=== PATIENT | female | born 1955 | race Caucasian/White ===

== ENCOUNTER → 2017-02-26 | Outpatient (CLI) | payer MEDICARE, OTHER | LOC: OD 16:20 | DX: Z12.4 Encounter for screening for malignant neoplasm of cervix (principal) | CPT/HCPCS: 88142 ==

== ENCOUNTER → 2017-04-10 | Outpatient (CLI) | payer MEDICARE, OTHER ==
--- NOTE | 2017-04-10 14:46 | WOMENS IMAGING REPORT ---
EXAM DESCRIPTION: BILAT SCREENING MAMMO W/CAD COMPLETED DATE/TIME: 04/10/2017 2:38 pm REASON FOR STUDY: ROUTINE SCREENING; Z12.31 Z12.31 ENCNTR SCREEN MAMMOGRAM FOR MALIGNANT NEOPLASM O F REBEKAH COMPARISON: None. TECHNIQUE: Standard craniocaudal and mediolateral oblique views of each breast recorded using digita l acquisition. LIMITATIONS: None. FINDINGS: No masses, calcifications or architectural distortion. No areas of suspicion. Read with the assistance of CAD. .[facility] - R2 Cenova Version 1.3 .[facility] - R2 Cenova Version 1.3 .[facility] - R2 Cenova Version 2.4 .[facility] [place] Cenova Version 2.4 .[facility] - R2 Crook Operator Version 9.2 IMPRESSION: NORMAL MAMMOGRAM. BIRADS 1. BREAST DENSITY: c. The breasts are heterogeneously dense, which may obscure small masses. BIRAD: 1 NEGATIVE RECOMMENDATION: ROUTINE SCREENING COMMENT: The patient has been notified of the results by letter per SA requirements. Additional no tification policies are in place for contacting patient with suspicious or incomplete findings. Quality ID #[id number]: The [employer] recommends an annual screening mammogram for women aged 40 years or over. This facility utilizes a reminder system to ensure that all patients receive reminder letters, and/or direct phone calls for appointments. This includes reminders for routine scr eening mammograms, diagnostic mammograms, or other Breast Imaging Interventions when appropriate. Th is patient will be placed in the appropriate reminder system. The [employer] (ACR) has developed recommendations for screening MRI of the breast s in certain patient populations, to be used in conjunction with mammography. Breast MRI surveillanc e may be appropriate for women with more than 20% lifetime risk of developing breast cancer as deter mined by genetic testing, significant family history of the disease, or history of mantle radiation f or Hodgkins Disease. ACR Practice Guidelines 2008. TECHNICAL DOCUMENTATION: FINDING NUMBER: (1) ASSESSMENT: (1) JOB ID: [id number] [employer]- All Rights Reserved
== END ==
LOC: WI 14:00
PROVIDERS: ATTEND Internal Medicine Geriatric Medicine
DX: Z12.31 Encounter for screening mammogram for malignant neoplasm of breast (principal)
CPT/HCPCS: 77067; G0202

== ENCOUNTER 2017-07-24 08:49 | Emergency (ER) | payer MEDICARE, OTHER ==
[2017-07-24 09:01] VITALS: BP 127/69
--- NOTE | 2017-07-24 09:28 | ER Document Report ---
HPI - HPI Pain Level: 4 Notes: Patient is a 61-year-old female with a history of MS who presents to the ED complaining of a dry nonproductive cough, feverish on and off 2 weeks. Patient states that she was evaluated at the urgent care twice without any chest x-ray. She was placed on amoxicillin given cough medication. Patient states that she did take an MS injection recently that was given in a series and has a side effect of URI. On occasion she will feel SOB during coughing fit. Patient denies any long distance travel, smoking, hormone replacement, surgery, or trauma. She still eating and drinking without any difficulties. She has not noticed any buildup of edema. She denies any drug allergies. Denies any headache, neck pain, sore throat, chest pain, palpitations, syncope, wheeze, dyspnea, abdominal pain, nausea/vomiting/diarrhea, urinary retention, dysuria, hematuria, or rash. Pt denies h/o CVA, TIA, DVT, PE, DM, or CA. - ROS Notes: REVIEW OF SYSTEMS: CONSTITUTIONAL : see hpi. Denies recent illness. EENT: Denies eye, ear, throat, or mouth pain or symptoms. Denies nasal or sinus congestion or discharge. Denies throat, tongue, or mouth swelling or difficulty swallowing. CARDIOVASCULAR: Denies chest pain. Denies palpitations or racing or irregular heart beat. Denies ankle edema. RESPIRATORY: see hpi GASTROINTESTINAL: Denies abdominal pain or distention. Denies nausea, vomiting , or diarrhea. Denies blood in vomitus, stools, or per rectum. Denies black, tarry stools. Denies constipation. GENITOURINARY: Denies difficulty urinating, painful urination, burning, frequency, blood in urine, or discharge. MUSCULOSKELETAL: Denies back or neck pain or stiffness. Denies joint pain or swelling. SKIN: Denies rash, lesions or sores. NEUROLOGICAL: see hpi. Denies confusion or altered mental status. Denies passing out or loss of consciousness. Denies dizziness or lightheadedness. Denies headache. Denies problems with gait or speech. Denies sensory loss, numbness, or tingling. ALL OTHER SYSTEMS REVIEWED AND NEGATIVE. Dictation was performed using [employer] voice recognition software - CARDIOVASCULAR Cardiovascular: REPORTS: Chest pain - from coughing - REPRODUCTIVE Reproductive: DENIES: : - DERM Skin Color: Normal Past Medical History - Social History Smoking Status: Unknown if Ever Smoked Family History: Reviewed & Not Pertinent Patient has suicidal ideation: No Patient has homicidal ideation: No Renal/ Medical History: Denies: Hx Peritoneal Dialysis Past Surgical History: Reports: Hx Tubal Ligation - Immunizations Hx Diphtheria, Pertussis, Tetanus Vaccination: Yes Vertical Provider Document - CONSTITUTIONAL Agree With Documented VS: Yes Notes: PHYSICAL EXAMINATION: GENERAL: Well-appearing, well-nourished and in no acute distress. HEAD: Atraumatic, normocephalic. EYES: Pupils equal round and reactive to light, extraocular movements intact, sclera anicteric, conjunctiva are normal. ENT: EAC clear b/l. TM's intact b/l without erythema, fluid, or perforation. Nares patent and without discharge. oropharynx clear without exudates. No tonsilar hypertrophy or erythema. Moist mucous membranes. No sinus tenderness. NECK: Normal range of motion, supple without lymphadenopathy. No rigidity/ meningismus. LUNGS: Breath sounds clear to auscultation bilaterally and equal. + min. wheeze. HEART: Regular rate and rhythm without murmurs, rubs, gallops. Musculoskeletal: FROM to passive/active. Strength 5+/5. Navneet neg. Extremities: No cyanosis, clubbing, or edema b/l. Peripheral pulses 2+. Capillary refill less than 3 seconds. PSYCH: Normal mood, normal affect. SKIN: Warm, Dry, normal turgor, no rashes or lesions noted. - INFECTION CONTROL TRAVEL OUTSIDE OF THE [place] IN LAST 30 DAYS: No - RESPIRATORY O2 Sat by Pulse Oximetry: 96 Course - Re-evaluation Re-evalutation: 07/24/17 14:13 Patient is an afebrile, well-hydrated, 61-year-old female with MS who presents to the ED with acute bronchitis/cough. Vitals are stable. PE otherwise unremarkable. CBC, BMP stable. CXR negative. A DuoNeb was provided today which did help with some of her symptoms. Patient then developed nausea and Zofran 4 mg p.o. was given. D-dimer was ordered due to the tachycardia and lack of ambulation. The d-dimer came back mildly high so we ordered a CTA which was unremarkable for any acute emergent condition. There is an incidental finding of a right greater than left thyroid enlargement. Patient is tolerating p.o. intake. Low suspicion/risk for any ACS, PE, pneumothorax, pericarditis, dissection, or other systemic emergent condition at this time. We will stop her amoxicillin and I will switch her to Zithromax. Conservative measures for symptoms otherwise. Recheck with your PCM in 2-3 days. Return to the ED with any worsening/concerning symptoms otherwise as reviewed in discharge. Patient is in agreement. - Vital Signs Vital signs: Temp Pulse Resp BP Pulse Ox 98.7 F 107 H 20 127/69 H 96 07/24/17 08:58 07/24/17 08:58 07/24/17 09:16 07/24/17 08:58 07/24/17 08:58 - Laboratory Result Diagrams: 07/24/17 10:55 07/24/17 10:55 Discharge - Discharge Clinical Impression: Acute bronchitis Qualifiers: Bronchitis organism: unspecified organism Qualified Code(s): J20.9 - Acute bronchitis, unspecified Condition: Stable Disposition: HOME, SELF-CARE Instructions: Bronchitis ([facility]) Additional Instructions: Maintain adequate fluid intake Take meds as directed tylenol/ibuprofen as needed over the counter cold medication as needed for symptoms Humidified air may help F/u: with your PCM in 2-3 days for a recheck Return to the ED with any fever, worsening pain, chest pain, palpitations, syncope, worsening SAWYER, neck pain/stiffness, shortness of breath, wheezing, drooling, trouble swallowing/breathing, abdominal pain, n/v/d, rash, or worsening/concerning symptoms otherwise. Prescriptions: Albuterol Sulfate [Proair HFA Inhalation Aerosol 8.5 gm MDI] 2 puff IH Q4H PRN # 1 mdi PRN Reason: Azithromycin [Zithromax 250 mg Tablet] 250 mg PO ASDIR PRN #6 tablet PRN Reason: Forms: Elevated Blood Pressure Referrals: [facility] [Provider Group] - Follow up as needed [facility] [Provider Group] - Follow up as needed
--- NOTE | 2017-07-24 09:52 | RADIOLOGY REPORT (SQ) ---
EXAM DESCRIPTION: CHEST PA/LAT COMPLETED DATE/TIME: 07/24/2017 9:40 am REASON FOR STUDY: cough COMPARISON: Chest films 03/13/2010, 12/02/2007 EXAM PARAMETERS: NUMBER OF VIEWS: two views TECHNIQUE: Digital Frontal and Lateral radiographic views of the chest acquired. RADIATION DOSE: NA LIMITATIONS: none FINDINGS: LUNGS AND PLEURA: No opacities, masses or pneumothorax. No pleural effusion. MEDIASTINUM AND HILAR STRUCTURES: No masses or contour abnormalities. HEART AND VASCULAR STRUCTURES: Heart normal size. No evidence for failure. BONES: Osteoporotic. Convex rightward thoracic and convex leftward lumbar curvature. No gross acute bony changes. HARDWARE: None in the chest. OTHER: No other significant finding. IMPRESSION: NO SIGNIFICANT RADIOGRAPHIC FINDING IN THE CHEST. TECHNICAL DOCUMENTATION: JOB ID: [id number] [employer]- All Rights Reserved
[2017-07-24] MEDS ORDERED: IPRATROPIUM/ALBUTEROL 0.5-2.5 MG/3 ML AMPUL NEB ONE (09:57)
[2017-07-24] MEDS ORDERED: ONDANSETRON 4 MG TAB.RAPDIS PO ONE (11:25)
[2017-07-24 12:57] LABS: ABSOLUTE EOSINOPHILS # (AUTO) 0.2 10^3/uL (0.0-0.6); ABSOLUTE LYMPHOCYTES (AUTO) 0.4 10^3/uL (0.5-4.7); ABSOLUTE MONOCYTES (AUTO) 0.5 10^3/uL (0.1-1.4); ABSOLUTE NEUT (AUTO) 4.6 10^3/uL (1.7-8.2); BASOPHILS % (AUTO) 0.4 % (0-2); EOSINOPHILS % (AUTO) 3.1 % (0-6); HEMATOCRIT 33.5 % (36.0-47.0); HEMOGLOBIN 11.7 g/dL (12.0-15.5); HGB HCT DIFFERENCE 1.6; LYMPHOCYTES % (AUTO) 6.6 % (13-45); MEAN CORPUSCULAR HEMOGLOBIN 31.6 pg (27.0-33.4); MEAN CORPUSCULAR VOLUME 90 fl (80-97); MONOCYTES % (AUTO) 8.6 % (3-13); RED BLOOD COUNT 3.71 10^6/uL (3.72-5.28); SEGMENTED NEUTROPHILS % (AUTO) 81.3 % (42-78); WHITE BLOOD COUNT 5.6 10^3/uL (4.0-10.5)
[2017-07-24 12:58] LABS: ANION GAP 13 (5-19); BLOOD UREA NITROGEN 16 mg/dL (7-20); CALCIUM 9.4 mg/dL (8.4-10.2); CARBON DIOXIDE 24 mmol/L (22-30); CHLORIDE 104 mmol/L (98-107); CREATININE RESULT 0.76 mg/dL (0.52-1.25); GLUCOSE 120 mg/dL (75-110); POTASSIUM 3.4 mmol/L (3.6-5.0); SODIUM 141.3 mmol/L (137-145)
--- NOTE | 2017-07-24 13:42 | RADIOLOGY REPORT (SQ) ---
EXAM DESCRIPTION: CTA CHEST COMPLETED DATE/TIME: 07/24/2017 1:15 pm REASON FOR STUDY: elevated d-dimer, cough, sob COMPARISON: None. TECHNIQUE: CT scan of the chest performed using helical scanning technique with dynamic intravenous contrast injection. Images reviewed with lung, soft tissue and bone windows. Reconstructed coronal and sagittal MPR images reviewed. Additional 3 dimensional post-processing performed to develop Maximal Intensity Projection images (MT P). All images stored on PACS. All CT scanners at this facility use dose modulation, iterative reconstruction, and/or weight based d osing when appropriate to reduce radiation dose to as low as reasonably achievable (ALARA). [facility]: Dose Right [facility]: CareDose [facility]: Dose Right [facility]: Teradose 4D [facility]: FAB BAG CONTRAST TYPE AND DOSE: contrast/concentration: Isovue 370.00 mg/ml; Total Contrast Delivered: 63.0 ml; Total Saline Delivered: 80.1 ml Contrast bolus optimized for the pulmonary arteries. Not diagnostic for the aorta. RENAL FUNCTION: Creatinine 0.8 BUN 16 RADIATION DOSE: Up-to-date CT equipment and radiation dose reduction techniques were employed. CTDIv ol: 9.9 - 14.4 mGy. DLP: 529 mGy-cm. . LIMITATIONS: None. FINDINGS: LUNGS AND PLEURA: No masses, infiltrates, pneumothorax. No pleural effusions, calcificati ons. AORTA AND GREAT VESSELS: No aneurysm. Contrast bolus not optimized for the aorta. HEART: No pericardial effusion. Mild coronary artery calcifications. PULMONARY ARTERIES: No emboli visualized in the main pulmonary arteries or the segmental branches. HILAR AND MEDIASTINAL STRUCTURES: No identified masses or abnormal nodes. HARDWARE: None in the chest. UPPER ABDOMEN: No significant findings. Limited exam. THYROID AND OTHER SOFT TISSUES: The right lobe of the thyroid is enlarged and heterogeneous. BONES: No acute or significant finding. 3D MIPS: Confirm above findings. OTHER: No other significant finding. IMPRESSION: 1. There is no evidence of pulmonary emboli. 2. There is heterogeneous enlargement of the right lobe of the thyroid gland. COMMENT: Quality ID # [id number]: Final reports with documentation of one or more dose reduction techniques (e.g., Automated exposure control, adjustment of the mA and/or kV according to patient size, use of iterative reconstruction technique) TECHNICAL DOCUMENTATION: JOB ID: [id number]- All Rights Reserved
== END 2017-07-24 14:25 | disposition home or self-care (01) ==
LOC: ER 08:49
DX: J20.9 Acute bronchitis, unspecified (principal); R05 Cough; R06.02 Shortness of breath; R11.0 Nausea; R00.0 Tachycardia, unspecified; E04.9 Nontoxic goiter, unspecified
CPT/HCPCS: 94640; 99284; 36415; 85025; 80048; 85379; 71020; 71275; A9270 ×2; J7620; S0119

== ENCOUNTER → 2017-07-28 | Outpatient (CLI) | payer MEDICARE, OTHER ==
[2017-07-28 16:57] LABS: FREE T3 3.41 pg/mL (2.77-5.27)
[2017-07-28 17:11] LABS: THYROID STIMULATING HORMONE 0.51 uIU/mL (0.47-4.68)
== END ==
LOC: OD 15:28
PROVIDERS: ATTEND Internal Medicine Geriatric Medicine
DX: E04.9 Nontoxic goiter, unspecified (principal)
CPT/HCPCS: 36415; 84439; 84443; 84481

== ENCOUNTER 2017-07-29 14:59 | Inpatient (IN) | payer MEDICARE, OTHER ==
[2017-07-29] MEDS ORDERED: ONDANSETRON HCL INJ/PF 4 MG/2 ML SDV IV ONE (16:22)
[2017-07-29] MEDS ORDERED: NORMAL SALINE 1000 ML 1,000 ML IV PRN ×2 (16:22→18:59)
--- NOTE | 2017-07-29 16:25 | ER Document Report ---
ED General - General Chief Complaint: Shortness Of Breath Stated Complaint: DIFFICULTY BREATHING Time Seen by Provider: 07/29/17 16:21 Mode of Arrival: Ambulatory Information source: Patient Notes: This is a 61-year-old female with a history of MS who presents to the emergency room with generalized weakness and shortness of breath for the past 2 weeks. Patient did have a trial dose of Lemtrada at [facility] in June. Patient states she initially did well after that but started feeling weak and having some shortness of breath 2 weeks ago. Patient denies any abdominal pain. She does state she has had some low-grade fevers and chills. Patient appeared very weak on my entry into the room and had a syncopal episode. TRAVEL OUTSIDE OF THE [place] IN LAST 30 DAYS: No - HPI Onset: Last week Onset/Duration: Gradual Quality of pain: No pain Severity: None Pain Level: Denies Associated symptoms: Fever, Shortness of breath, Weakness Exacerbated by: Denies Relieved by: Denies Similar symptoms previously: Yes Recently seen / treated by doctor: Yes - Related Data Allergies/Adverse Reactions: No Known Allergies Allergy (Verified 07/29/17 15:10) Past Medical History - General Information source: Patient - Social History Smoking Status: Never Smoker Cigarette use (# per day): No Chew tobacco use (# tins/day): No Frequency of alcohol use: None Drug Abuse: None Lives with: Family Family History: Reviewed & Not Pertinent Patient has suicidal ideation: No Patient has homicidal ideation: No - Past Medical History Cardiac Medical History: Reports: None Pulmonary Medical History: Reports: None EENT Medical History: Reports: None Neurological Medical History: Reports: Other - MS Endocrine Medical History: Reports: None Renal/ Medical History: Reports: None. Denies: Hx Peritoneal Dialysis Malignancy Medical History: Reports: None GI Medical History: Reports: None Musculoskeltal Medical History: Reports None Skin Medical History: Reports None Psychiatric Medical History: Reports: None Traumatic Medical History: Reports: None Infectious Medical History: Reports: None Past Surgical History: Reports: Hx Tubal Ligation - Immunizations Hx Diphtheria, Pertussis, Tetanus Vaccination: Yes Review of Systems - Review of Systems Constitutional: Chills, Fever, Weakness EENT: No symptoms reported Cardiovascular: No symptoms reported Respiratory: See HPI Gastrointestinal: No symptoms reported Genitourinary: No symptoms reported Female Genitourinary: No symptoms reported Musculoskeletal: No symptoms reported Skin: No symptoms reported Hematologic/Lymphatic: No symptoms reported Neurological/Psychological: Weakness Physical Exam - Vital signs Vitals: Temp Pulse Resp BP Pulse Ox 100.4 F 106 H 32 H 131/57 H 99 07/29/17 15:10 07/29/17 15:10 07/29/17 15:10 07/29/17 15:10 07/29/17 15:10 Notes: Physical exam: GENERAL: 61-year-old female, appears weak, answering questions appropriately, diaphoretic. She did syncopized on me in the ER. HEAD: Atraumatic, normocephalic. EYES: Pupils equal round and reactive to light, extraocular movements intact, sclera anicteric, conjunctiva are normal. ENT: TMs normal, nares patent, oropharynx clear without exudates. Moist mucous membranes. NECK: Normal range of motion, supple without obvious mass or JVD. LUNGS: Breath sounds clear to auscultation bilaterally and equal. No wheezes rales or rhonchi. HEART: Regular rate and rhythm without murmurs, rubs or gallops. ABDOMEN: Soft, normoactive bowel sounds. No tenderness to palpation. No guarding, no rebound. No masses appreciated. Rectal: Brown stool, sent for study EXTREMITIES: Normal range of motion, no pitting or edema. No clubbing or cyanosis. NEUROLOGICAL: Cranial nerves II through XII grossly intact. Normal speech, moving all extremities. PSYCH: Normal mood, normal affect. SKIN: Warm, Dry, normal turgor, no rashes or lesions noted. Course - Vital Signs Vital signs: Temp Pulse Resp BP Pulse Ox 98 F 86 16 147/75 H 100 07/29/17 22:17 07/29/17 22:17 07/29/17 22:17 07/29/17 22:17 07/29/17 22:17 - Laboratory Result Diagrams: 07/29/17 16:39 07/29/17 16:39 Laboratory results interpreted by me: 07/29/17 07/29/17 07/29/17 16:39 16:39 16:39 RBC 3.48 L Hgb 10.8 L Hct 30.8 L Seg Neutrophils % 83.0 H Lymphocytes % 7.7 L Absolute Lymphocytes 0.3 L Potassium 3.4 L Carbon Dioxide 21 L Lactic Acid 2.8 H Creatine Kinase 27 L Total Protein 6.1 L Albumin 3.3 L Urine Ketones Urine Blood Ur Leukocyte Esterase 07/29/17 19:42 RBC Hgb Hct Seg Neutrophils % Lymphocytes % Absolute Lymphocytes Potassium Carbon Dioxide Lactic Acid Creatine Kinase Total Protein Albumin Urine Ketones TRACE H Urine Blood SMALL H Ur Leukocyte Esterase LARGE H - Diagnostic Test Radiology reviewed: Image reviewed, Reports reviewed - CTA shows no evidence of pulmonary emboli, there is a left basilar infiltrate consistent with pneumonia - EKG Interpretation by Ut Rate: Normal Rhythm: NSR - EKG shows normal sinus rhythm with a ventricular rate of 85, no acute ST-T wave changes Critical Care Note - Critical Care Note Total time excluding time spent on procedures (mins): 60 Discharge - Discharge Clinical Impression: Syncope, Pneumonia, UTI Condition: Serious Disposition: ADMITTED INPATIENT Admitting Provider: Lloyd Unit Admitted: [facility]
--- NOTE | 2017-07-29 16:44 | EKG REPORT ---
SEVERITY:- NORMAL ECG - SINUS RHYTHM : Confirmed by: Twila Santana MD 29-Jul-2017 16:43:46
[2017-07-29 16:52] LABS: ABSOLUTE LYMPHOCYTES (AUTO) 0.3 10^3/uL (0.5-4.7); ABSOLUTE MONOCYTES (AUTO) 0.3 10^3/uL (0.1-1.4); ABSOLUTE NEUT (AUTO) 3.7 10^3/uL (1.7-8.2); BASOPHILS % (AUTO) 0.8 % (0-2); EOSINOPHILS % (AUTO) 0.7 % (0-6); HEMATOCRIT 30.8 % (36.0-47.0); HEMOGLOBIN 10.8 g/dL (12.0-15.5); HGB HCT DIFFERENCE 1.6; LYMPHOCYTES % (AUTO) 7.7 % (13-45); MEAN CORPUSCULAR HEMOGLOBIN 30.9 pg (27.0-33.4); MEAN CORPUSCULAR HGB CONC 34.9 g/dL (32.0-36.0); MEAN CORPUSCULAR VOLUME 88 fl (80-97); MONOCYTES % (AUTO) 7.8 % (3-13); RED BLOOD COUNT 3.48 10^6/uL (3.72-5.28); RED CELL DISTRIBUTION WIDTH 13.8 % (11.5-14.0); WHITE BLOOD COUNT 4.4 10^3/uL (4.0-10.5)
[2017-07-29 17:17] LABS: ALANINE AMINOTRANSFERASE 33 U/L (9-52); ALBUMIN 3.3 g/dL (3.5-5.0); ALKALINE PHOSPHATASE 46 U/L (38-126); ANION GAP 13 (5-19); ASPARTATE AMINO TRANSFERASE 29 U/L (14-36); BILIRUBIN,DIRECT 0.4 mg/dL (0.0-0.4); BILIRUBIN,TOTAL 0.6 mg/dL (0.2-1.3); BLOOD UREA NITROGEN 13 mg/dL (7-20); CALCIUM 8.6 mg/dL (8.4-10.2); CARBON DIOXIDE 21 mmol/L (22-30); CHLORIDE 106 mmol/L (98-107); CREATINE KINASE 27 U/L (30-135); CREATININE RESULT 0.71 mg/dL (0.52-1.25); GLUCOSE 105 mg/dL (75-110); POTASSIUM 3.4 mmol/L (3.6-5.0); SODIUM 139.5 mmol/L (137-145); TOTAL PROTEIN 6.1 g/dL (6.3-8.2)
[2017-07-29 17:30] LABS: CREATINE KINASE MB < 0.22 ng/mL (<4.55); TROPONIN I < 0.012 ng/mL
--- NOTE | 2017-07-29 17:30 | RADIOLOGY REPORT (SQ) ---
EXAM DESCRIPTION: CHEST SINGLE VIEW COMPLETED DATE/TIME: 07/29/2017 5:06 pm REASON FOR STUDY: sob COMPARISON: 07/24/2017 EXAM PARAMETERS: NUMBER OF VIEWS: One view. TECHNIQUE: Single frontal radiographic view of the chest acquired. RADIATION DOSE: NA LIMITATIONS: None. FINDINGS: LUNGS AND PLEURA: There is slight haziness in the left base. MEDIASTINUM AND HILAR STRUCTURES: No masses. Contour normal. HEART AND VASCULAR STRUCTURES: Heart normal in size. Normal vasculature. BONES: No acute findings. HARDWARE: None in the chest. OTHER: No other significant finding. IMPRESSION: A limited infiltrate cannot be excluded in the left base. TECHNICAL DOCUMENTATION: JOB ID: [id number]
[2017-07-29 20:08] LABS: APPEARANCE,URINE CLOUDY; BILIRUBIN,URINE NEGATIVE (NEGATIVE); GLUCOSE, URINE NEGATIVE (NEGATIVE); KETONES,URINE TRACE mg/dL (NEGATIVE); LEUKOCYTE ESTERASE,URINE LARGE (NEGATIVE); NITRITE,URINE NEGATIVE (NEGATIVE); PROTEIN,URINE NEGATIVE (NEGATIVE); URINE SPECIFIC GRAVITY 1.013; UROBILINOGEN,URINE NEGATIVE mg/dL (<2.0)
--- NOTE | 2017-07-29 20:17 | RADIOLOGY REPORT (SQ) ---
EXAM DESCRIPTION: CTA CHEST COMPLETED DATE/TIME: 07/29/2017 7:27 pm REASON FOR STUDY: syncope, sob COMPARISON: CTA of the chest dated 07/24/2017 TECHNIQUE: CT scan of the chest performed using helical scanning technique with dynamic intravenous contrast injection. Images reviewed with lung, soft tissue and bone windows. Reconstructed coronal and sagittal MPR images reviewed. Additional 3 dimensional post-processing performed to develop Maximal Intensity Projection images ([place] P). All images stored on PACS. All CT scanners at this facility use dose modulation, iterative reconstruction, and/or weight based d osing when appropriate to reduce radiation dose to as low as reasonably achievable (ALARA). [facility]: Dose Right [facility]: CareDose [facility]: Dose Right [facility]: Teradose 4D [facility]: Momspot CONTRAST TYPE AND DOSE: contrast/concentration: Isovue 370.00 mg/ml; Total Contrast Delivered: 63.0 ml; Total Saline Delivered: 104.0 ml Contrast bolus optimized for the pulmonary arteries. Not diagnostic for the aorta. RENAL FUNCTION: Creatinine 0.71 RADIATION DOSE: Up-to-date CT equipment and radiation dose reduction techniques were employed. CTDIv ol: 14.3 - 16.5 mGy. DLP: 492 mGy-cm. . LIMITATIONS: None. FINDINGS: LUNGS AND PLEURA: There has been interval development of basilar airspace consolidation wh ich could represent atelectatic changes or pneumonic consolidation. No pleural effusions are identif ied. No pneumothorax is seen. Chronic appearing changes are again identified. AORTA AND GREAT VESSELS: No aneurysm. Contrast bolus not optimized for the aorta. HEART: No pericardial effusion. No significant coronary artery calcifications. PULMONARY ARTERIES: No emboli visualized in the main pulmonary arteries or the segmental branches. HILAR AND MEDIASTINAL STRUCTURES: No identified masses or abnormal nodes. HARDWARE: None in the chest. UPPER ABDOMEN: No significant findings. Limited exam. THYROID AND OTHER SOFT TISSUES: The previously described enlargement of the right lobe of the thyroid gland is again identified. No adenopathy. BONES: No acute or significant finding. 3D MIPS: Confirm above findings. OTHER: No other significant finding. IMPRESSION: No evidence for pulmonary embolic disease. Interval development of basilar airspace con solidation which could represent atelectatic changes or pneumonic consolidation. No pleural effusion s are identified. Other findings as noted above COMMENT: Quality ID # [id number]: Final reports with documentation of one or more dose reduction techniques (e.g., Automated exposure control, adjustment of the mA and/or kV according to patient size, use of iterative reconstruction technique) TECHNICAL DOCUMENTATION: JOB ID: [id number] [employer]- All Rights Reserved
[2017-07-29] MEDS ORDERED: AZITHROMYCIN INJ 500 MG VIAL IV ONE (20:21)
[2017-07-29] MEDS ORDERED: CEFTRIAXONE 1 GM/D5W RTU 1 GM/50 ML RTUPB IV ONE (20:21)
[2017-07-30] MEDS: ACETAMINOPHEN 325 MG TABLET PO PRN ×2 (00:45→08:00)
[2017-07-30] MEDS: LANSOPRAZOLE 30 MG TAB.RAP.DR PO SCH (05:05)
[2017-07-30 05:37] LABS: ABSOLUTE EOSINOPHILS # (AUTO) 0.1 10^3/uL (0.0-0.6); ABSOLUTE LYMPHOCYTES (AUTO) 0.3 10^3/uL (0.5-4.7); ABSOLUTE MONOCYTES (AUTO) 0.3 10^3/uL (0.1-1.4); ABSOLUTE NEUT (AUTO) 3.2 10^3/uL (1.7-8.2); BASOPHILS % (AUTO) 0.6 % (0-2); EOSINOPHILS % (AUTO) 2.9 % (0-6); HEMATOCRIT 27.3 % (36.0-47.0); HEMOGLOBIN 9.8 g/dL (12.0-15.5); HGB HCT DIFFERENCE 2.1; MEAN CORPUSCULAR HEMOGLOBIN 31.5 pg (27.0-33.4); MEAN CORPUSCULAR HGB CONC 35.7 g/dL (32.0-36.0); MEAN CORPUSCULAR VOLUME 88 fl (80-97); MONOCYTES % (AUTO) 8.6 % (3-13); RED CELL DISTRIBUTION WIDTH 13.9 % (11.5-14.0); SEGMENTED NEUTROPHILS % (AUTO) 79.9 % (42-78)
[2017-07-30 05:47] LABS: ALANINE AMINOTRANSFERASE 27 U/L (9-52); ALBUMIN 2.7 g/dL (3.5-5.0); ALKALINE PHOSPHATASE 44 U/L (38-126); ANION GAP 9 (5-19); ASPARTATE AMINO TRANSFERASE 23 U/L (14-36); BILIRUBIN,DIRECT 0.4 mg/dL (0.0-0.4); BILIRUBIN,TOTAL 0.5 mg/dL (0.2-1.3); BLOOD UREA NITROGEN 9 mg/dL (7-20); CALCIUM 8.1 mg/dL (8.4-10.2); CARBON DIOXIDE 22 mmol/L (22-30); CHLORIDE 114 mmol/L (98-107); GLUCOSE 96 mg/dL (75-110); POTASSIUM 3.3 mmol/L (3.6-5.0); SODIUM 144.5 mmol/L (137-145); TOTAL PROTEIN 5.2 g/dL (6.3-8.2)
--- NOTE | 2017-07-30 08:52 | PDOC H&P ---
History of Present Illness Admission Date/PCP: 07/30/17 00:18 JARED GARLAND Patient complains of: Difficulty with breathing; Fatigue History of Present Illness: AJITH ZHU is a 61 year old female known to my practice presented to the ED with complaint of difficulty with breathing and generalized fatigue which have been ongoing for about 2 weeks. Patient reported evaluation at local Urgent care where she was prescribed Amoxicillin and subsequently at our ED with discontinuation of Amoxicillin and prescribed Zithromax without improvement in her generalised weakness, feverish and fatigue feeling. She was found to have right thyroid lobe enlargement, during her recent office visit she was negative for Influenza A and B rapid testing. Her recent thyroid function evaluation was unrevealing about hyper or hypo functioning. Her evaluation in the ED during this visit revealed no pulmonary embolus but suggested interval development of basilar airspace disease process. She reported unproductive cough and chest tightness. No definite chest pain. No abdominal pain, nausea or vomiting. She denied any genitourinary symptoms but her urinalysis suggest possible UTI. In view of her presenting symptoms, clinical findings, and laboratory assessments she was advised admission for further evaluation and management. Her significant morbidity is multiple sclerosis. She was treated with IV [facility] June, prior to onset of her present acute illness. Past Medical History Cardiac Medical History: Reports: None Pulmonary Medical History: Reports: None EENT Medical History: Reports: None Neurological Medical History: Reports: Multiple Sclerosis Endocrine Medical History: Reports: None Renal/ Medical History: Reports: None Malignancy Medical History: Reports: None GI Medical History: Reports: None Musculoskeltal Medical History: Reports: None Skin Medical History: Reports: None Psychiatric Medical History: Reports: None, Depression Traumatic Medical History: Reports: None Infectious Medical History: Reports: None Past Surgical History Past Surgical History: Reports: Tubal Ligation Social History Lives with: Family Smoking Status: Former Smoker Last Time Smoked: 1992 Frequency of Alcohol Use: None Hx Recreational Drug Use: No Hx Prescription Drug Abuse: No - Advance Directive Resuscitation Status: Full Code Family History Family History: Reviewed & Not Pertinent Parental Family History Reviewed: Yes Children Family History Reviewed: Yes Sibling(s) Family History Reviewed.: Yes Medication/Allergy Allergies/Adverse Reactions: No Known Allergies Allergy (Verified 07/29/17 15:10) Review of Systems Constitutional: PRESENT: fatigue, fever(s) Eyes: PRESENT: visual disturbances - CAWG Cardiovascular: PRESENT: dyspnea on exertion Respiratory: PRESENT: cough Gastrointestinal: ABSENT: abdominal pain, constipation, diarrhea, hematemesis, hematochezia, nausea, vomiting Genitourinary: ABSENT: dysuria, hematuria Musculoskeletal: PRESENT: muscle weakness - due to multiple sclerosis Integumentary: ABSENT: rash, wounds Neurological: PRESENT: abnormal gait - related to multiple sclerosis, abnormal movements - related to multiple sclerosis, weakness - related to multiple sclerosis Psychiatric: ABSENT: anxiety, depression, homidical ideation, suicidal ideation Endocrine: ABSENT: cold intolerance, heat intolerance, polydipsia, polyuria Hematologic/Lymphatic: ABSENT: easy bleeding, easy bruising, lymphadenopathy Allergic/Immunologic: ABSENT: as per HPI, seasonal rhinorrhea, other Physical Exam Vital Signs: Temp Pulse Resp BP Pulse Ox 101.4 F H 94 20 138/77 H 97 07/30/17 07:48 07/30/17 07:48 07/30/17 07:48 07/30/17 07:48 07/30/17 07:48 Intake & Output 07/29/17 07/30/17 07/31/17 06:59 06:59 06:59 Intake Total 911 Output Total 500 Balance 411 Weight 62 kg General appearance: PRESENT: cooperative, mild distress - with fast breathing Head exam: PRESENT: atraumatic, normocephalic Eye exam: PRESENT: conjunctiva pink, EOMI, PERRLA. ABSENT: scleral icterus Ear exam: PRESENT: normal external ear exam Mouth exam: PRESENT: moist, tongue midline Throat exam: ABSENT: post pharyngeal erythema, tonsillar erythema, tonsillar exudate, tonsillogmegaly, other Neck exam: PRESENT: full ROM. ABSENT: carotid bruit, JVD, lymphadenopathy, thyromegaly Respiratory exam: PRESENT: clear to auscultation shaji, decreased breath sounds - at lung bases Cardiovascular exam: PRESENT: RRR. ABSENT: diastolic murmur, rubs, systolic murmur Pulses: PRESENT: normal dorsalis pedis pul, +2 pedal pulses bilateral Vascular exam: PRESENT: normal capillary refill. ABSENT: pallor GI/Abdominal exam: PRESENT: normal bowel sounds, soft. ABSENT: distended, guarding, mass, organolmegaly, rebound, tenderness Rectal exam: PRESENT: deferred Extremities exam: ABSENT: calf tenderness, joint swelling, pedal edema, tenderness Musculoskeletal exam: ABSENT: ambulatory - related to multiple sclerosis, transfer with scooter, tenderness Neurological exam: PRESENT: alert, awake, oriented to person, oriented to place , oriented to time, oriented to situation, abnormal gait - related to multiple sclerosis, CN II-XII grossly intact. ABSENT: motor sensory deficit Psychiatric exam: PRESENT: appropriate affect, normal mood. ABSENT: homicidal ideation, suicidal ideation Skin exam: PRESENT: dry, intact, warm. ABSENT: cyanosis, rash Results Laboratory Results: 07/30/17 05:13 07/30/17 05:13 07/30/17 07/30/17 05:13 05:13 WBC 4.0 RBC 3.10 L Hgb 9.8 L Hct 27.3 L MCV 88 MCH 31.5 MCHC 35.7 RDW 13.9 Plt Count 229 Seg Neutrophils % 79.9 H Lymphocytes % 8.0 L Monocytes % 8.6 Eosinophils % 2.9 Basophils % 0.6 Absolute Neutrophils 3.2 Absolute Lymphocytes 0.3 L Absolute Monocytes 0.3 Absolute Eosinophils 0.1 Absolute Basophils 0.0 Sodium 144.5 Potassium 3.3 L Chloride 114 H Carbon Dioxide 22 Anion Gap 9 BUN 9 Creatinine 0.60 Est GFR ( Amer) > 60 Est GFR (Non-Af Amer) > 60 Glucose 96 Calcium 8.1 L Total Bilirubin 0.5 AST 23 ALT 27 Alkaline Phosphatase 44 Total Protein 5.2 L Albumin 2.7 L Impressions: Chest X-Ray 07/29/17 16:21 IMPRESSION: A limited infiltrate cannot be excluded in the left base. Chest/Abdomen CTA 07/29/17 17:29 IMPRESSION: No evidence for pulmonary embolic disease. Interval development of basilar airspace consolidation which could represent atelectatic changes or pneumonic consolidation. No pleural effusions are identified. Other findings as noted above Assessment & Plan - Diagnosis (1) Lobar pneumonia Is this a current diagnosis for this admission?: Yes Plan: See admitting attending physician orders. (2) UTI (urinary tract infection) Qualifiers: Urinary tract infection type: acute cystitis Hematuria presence: without hematuria Qualified Code(s): N30.00 - Acute cystitis without hematuria Is this a current diagnosis for this admission?: Yes Plan: See admitting attending physician orders. (3) Syncope Qualifiers: Syncope type: vasovagal syncope Qualified Code(s): R55 - Syncope and collapse Is this a current diagnosis for this admission?: Yes Plan: See admitting attending physician orders. (4) Multiple sclerosis, primary chronic progressive Is this a current diagnosis for this admission?: Yes Plan: See admitting attending physician orders. (5) Hypokalemia due to inadequate potassium intake Is this a current diagnosis for this admission?: Yes Plan: See admitting attending physician orders. - Time Time Spent: 50 to 70 Minutes Medications reviewed and adjusted accordingly: Yes Anticipated discharge: Home Within: Other - Inpatient Certification Based on my medical assessment, after consideration of the patient's comorbidities, presenting symptoms, or acuity I expect that the services needed warrant INPATIENT care.: Yes I certify that my determination is in accordance with my understanding of Medicare's requirements for reasonable and necessary INPATIENT services [42 CFR 412.3e].: Yes Medical Necessity: Need Close Monitoring Due to Risk of Patient Decompensation, Need For IV Fluids, Need For Continuous Telemetry Monitoring, Need for Nebulizer Therapy and Monitoring of Response, Need for IV Antibiotics, Risk of Complication if Not Cared For in Hospital Post Hospital Care: D/C Synoptic Meteorologist Documentation - Plan Summary Plan Summary: See admitting attending physician orders.
[2017-07-30] MEDS: POTASSI CL 20 MEQ/50 ML RIDER 20 MEQ/50 ML RTUPB IV SCH ×2 (08:55→11:05)
[2017-07-30] MEDS: LEVOFLOXACIN 750 MG/D5W RTU 750 MG/150 ML RTUPB IV SCH (10:39)
[2017-07-30] MEDS: IBUPROFEN 400 MG TABLET PO PRN ×2 (11:29→19:00)
[2017-07-30] MEDS: CEFEPIME 2 GM/D5W RTU 2 GM/50 ML RTUPB IV SCH ×2 (13:18→22:06)
[2017-07-30] MEDS ORDERED: AZITHROMYCIN 500 MG in DEXTROSE 5%-WATER 250 ML IV SCH (18:00)
[2017-07-30] MEDS ORDERED: CEFTRIAXONE 1 GM/D5W RTU 1 GM/50 ML RTUPB IV SCH (18:00)
[2017-07-30] MEDS: NORMAL SALINE 1000 ML 1,000 ML IV PRN (19:01)
[2017-07-31] MEDS: IBUPROFEN 400 MG TABLET PO PRN ×2 (03:34→10:30)
[2017-07-31] MEDS: ACETAMINOPHEN 325 MG TABLET PO PRN (04:57)
[2017-07-31] MEDS: NORMAL SALINE 1000 ML 1,000 ML IV PRN (05:02)
[2017-07-31] MEDS: LANSOPRAZOLE 30 MG TAB.RAP.DR PO SCH (05:02)
[2017-07-31] MEDS: LEVOFLOXACIN 750 MG/D5W RTU 750 MG/150 ML RTUPB IV SCH (08:43)
[2017-07-31] MEDS: CEFEPIME 2 GM/D5W RTU 2 GM/50 ML RTUPB IV SCH (10:21)
[2017-07-31] MEDS ORDERED: ALBUTEROL SULFATE HFA (90 MCG/PUFF) 200 PUFF/8.5 GM MDI IH PRN ×2 (18:48→19:19)
[2017-07-31] MEDS ORDERED: VANCOMYCIN HCL 0 MG in DEXTROSE 5%-WATER 250 ML IV NR (19:00)
--- NOTE | 2017-07-31 19:06 | PDOC PROGRESS REPORT ---
Subjective Progress Note for:: 07/31/17 Subjective:: Patient reported some improvement in her breathing. She is currently off supplemental oxygen. Coughing unproductive. Low grade fever persist. Blood culture growing gram positive cocci in cluster and urine culture is growing gram negative rods. Remain on IV Cefepime and Levofloxacin coverage. No chest pain. No nausea, vomiting or abdominal pain. Complain about back pain and requesting for stronger pain medication. She has been using Gabapentin on prn bases along with Tramadol in the past for pain management. Physical Exam Vital Signs: Temp Pulse Resp BP Pulse Ox 100.4 F 94 19 148/79 H 100 07/31/17 15:19 07/31/17 15:19 07/31/17 15:19 07/31/17 15:19 07/31/17 15:19 Intake & Output 07/30/17 07/31/17 08/01/17 06:59 06:59 06:59 Intake Total 911 3075 467 Output Total 500 850 100 Balance 411 2225 367 Weight 62 kg 61.2 kg General appearance: PRESENT: no acute distress, cooperative Head exam: PRESENT: atraumatic, normocephalic Eye exam: PRESENT: conjunctiva pink, EOMI, PERRLA. ABSENT: scleral icterus Mouth exam: PRESENT: moist Respiratory exam: PRESENT: clear to auscultation shaji, decreased breath sounds - bilaterally, rhonchi - minimal expiratory phase, wheezes - minimal expiratory phase Cardiovascular exam: PRESENT: RRR. ABSENT: diastolic murmur, rubs, systolic murmur GI/Abdominal exam: PRESENT: normal bowel sounds, soft. ABSENT: distended, guarding, mass, organolmegaly, rebound, tenderness Musculoskeletal exam: PRESENT: ambulatory - short distance in room with assistance, normal inspection Neurological exam: PRESENT: alert, awake, oriented to person, oriented to place , oriented to time, oriented to situation, CN II-XII grossly intact. ABSENT: motor sensory deficit Psychiatric exam: PRESENT: appropriate affect, normal mood. ABSENT: homicidal ideation, suicidal ideation Skin exam: PRESENT: dry, intact, warm. ABSENT: cyanosis, rash Results Laboratory Results: 07/30/17 05:13 07/30/17 05:13 Impressions: Chest X-Ray 07/29/17 16:21 IMPRESSION: A limited infiltrate cannot be excluded in the left base. Chest/Abdomen CTA 07/29/17 17:29 IMPRESSION: No evidence for pulmonary embolic disease. Interval development of basilar airspace consolidation which could represent atelectatic changes or pneumonic consolidation. No pleural effusions are identified. Other findings as noted above Assessment & Plan - Diagnosis (1) Lobar pneumonia Is this a current diagnosis for this admission?: Yes (2) UTI (urinary tract infection) Qualifiers: Urinary tract infection type: acute cystitis Hematuria presence: without hematuria Qualified Code(s): N30.00 - Acute cystitis without hematuria Is this a current diagnosis for this admission?: Yes (3) Syncope Qualifiers: Syncope type: vasovagal syncope Qualified Code(s): R55 - Syncope and collapse Is this a current diagnosis for this admission?: Yes (4) Multiple sclerosis, primary chronic progressive Is this a current diagnosis for this admission?: Yes (5) Hypokalemia due to inadequate potassium intake Is this a current diagnosis for this admission?: Yes - Time Time Spent with patient: 25-34 minutes Medications reviewed and adjusted accordingly: Yes Anticipated discharge: Home Within: Other - Inpatient Certification Based on my medical assessment, after consideration of the patient's comorbidities, presenting symptoms, or acuity I expect that the services needed warrant INPATIENT care.: Yes I certify that my determination is in accordance with my understanding of Medicare's requirements for reasonable and necessary INPATIENT services [42 CFR 412.3e].: Yes Medical Necessity: Need Close Monitoring Due to Risk of Patient Decompensation, Need For IV Fluids, Need For Continuous Telemetry Monitoring, Need for Pain Control, Need for IV Antibiotics, Risk of Complication if Not Cared For in Hospital Post Hospital Care: D/C Bellows Assembler Documentation - Plan Summary Plan Summary: Start on IV Vancomycin coverage pending final blood culture results findings. Maintain on IV Levofloxacin and Cefepime coverage. Add Benzonatate for cough management with Flutter device usage. Restart her home medications. Maintain on all other current mediation management. Obtain CBC with diff and CMP in am.
[2017-07-31] MEDS ORDERED: VANCOMYCIN HCL 750 MG in DEXTROSE 5%-WATER 250 ML IV ONE (20:30)
[2017-07-31] MEDS: GABAPENTIN 300 MG CAPSULE PO SCH (21:53)
[2017-07-31] MEDS: TRAMADOL HCL 50 MG TABLET PO PRN (21:53)
[2017-07-31] MEDS: BENZONATATE 100 MG CAPSULE PO PRN (22:25)
[2017-08-01] MEDS: CEFEPIME 2 GM/D5W RTU 2 GM/50 ML RTUPB IV SCH ×3 (00:32→23:10)
[2017-08-01] MEDS: NORMAL SALINE 1000 ML 1,000 ML IV PRN ×3 (00:33→23:11)
[2017-08-01] MEDS: ACETAMINOPHEN 325 MG TABLET PO PRN ×3 (00:47→17:32)
[2017-08-01 04:56] LABS: ABSOLUTE EOSINOPHILS # (AUTO) 0.1 10^3/uL (0.0-0.6); ABSOLUTE LYMPHOCYTES (AUTO) 0.3 10^3/uL (0.5-4.7); ABSOLUTE MONOCYTES (AUTO) 0.4 10^3/uL (0.1-1.4); ABSOLUTE NEUT (AUTO) 3.3 10^3/uL (1.7-8.2); BASOPHILS % (AUTO) 0.6 % (0-2); EOSINOPHILS % (AUTO) 2.7 % (0-6); HEMATOCRIT 24.3 % (36.0-47.0); HEMOGLOBIN 8.6 g/dL (12.0-15.5); HGB HCT DIFFERENCE 1.5; LYMPHOCYTES % (AUTO) 6.5 % (13-45); MEAN CORPUSCULAR HEMOGLOBIN 31.2 pg (27.0-33.4); MEAN CORPUSCULAR HGB CONC 35.4 g/dL (32.0-36.0); MEAN CORPUSCULAR VOLUME 88 fl (80-97); MONOCYTES % (AUTO) 9.6 % (3-13); RED BLOOD COUNT 2.77 10^6/uL (3.72-5.28); RED CELL DISTRIBUTION WIDTH 13.6 % (11.5-14.0); SEGMENTED NEUTROPHILS % (AUTO) 80.6 % (42-78)
[2017-08-01 05:19] LABS: ALANINE AMINOTRANSFERASE 22 U/L (9-52); ALBUMIN 2.5 g/dL (3.5-5.0); ALKALINE PHOSPHATASE 42 U/L (38-126); ANION GAP 7 (5-19); ASPARTATE AMINO TRANSFERASE 19 U/L (14-36); BILIRUBIN,DIRECT 0.4 mg/dL (0.0-0.4); BILIRUBIN,TOTAL 0.5 mg/dL (0.2-1.3); BLOOD UREA NITROGEN 8 mg/dL (7-20); CALCIUM 8.2 mg/dL (8.4-10.2); CARBON DIOXIDE 22 mmol/L (22-30); CHLORIDE 112 mmol/L (98-107); CREATININE RESULT 0.64 mg/dL (0.52-1.25); GLUCOSE 107 mg/dL (75-110); POTASSIUM 3.2 mmol/L (3.6-5.0); SODIUM 141.1 mmol/L (137-145)
[2017-08-01] MEDS: LANSOPRAZOLE 30 MG TAB.RAP.DR PO SCH (06:30)
[2017-08-01] MEDS ORDERED: VANCOMYCIN HCL 750 MG in DEXTROSE 5%-WATER 250 ML IV SCH (10:00)
[2017-08-01] MEDS: LEVOFLOXACIN 750 MG TABLET PO SCH (10:18)
--- NOTE | 2017-08-01 14:06 | PDOC PROGRESS REPORT ---
Subjective Progress Note for:: 08/01/17 Subjective:: Patient denied any chest pain or difficulty with breathing. Coughing is less. Using prescribed bedside flutter. Episode of low grade temp at 99.4F this morning. Remain on triple antibiotic including Vancomycin, levofloxacin and Cefepime. No nausea, vomiting, or abdominal pain. Physical Exam Vital Signs: Temp Pulse Resp BP Pulse Ox 99.5 F 88 23 H 143/87 H 100 08/01/17 07:36 08/01/17 07:36 08/01/17 07:36 08/01/17 07:36 08/01/17 07:36 Intake & Output 07/31/17 08/01/17 08/02/17 06:59 06:59 06:59 Intake Total 3075 2489 310 Output Total 850 900 600 Balance 2225 1589 -290 Weight 61.2 kg Physical Exam: General appearance: PRESENT: no acute distress, cooperative Head exam: PRESENT: atraumatic, normocephalic Eye exam: PRESENT: conjunctiva pink, EOMI, PERRLA. ABSENT: scleral icterus Mouth exam: PRESENT: moist Respiratory exam: PRESENT: clear to auscultation shaji, decreased breath sounds - bilaterally Cardiovascular exam: PRESENT: RRR. ABSENT: diastolic murmur, rubs, systolic murmur GI/Abdominal exam: PRESENT: normal bowel sounds, soft. ABSENT: distended, guarding, mass, organomegaly, rebound, tenderness Musculoskeletal exam: PRESENT: ambulatory - short distance in room with assistance, normal inspection Neurological exam: PRESENT: alert, awake, oriented to person, oriented to place , oriented to time, oriented to situation, CN II-XII grossly intact. ABSENT: motor sensory deficit Psychiatric exam: PRESENT: appropriate affect, normal mood. ABSENT: homicidal ideation, suicidal ideation Skin exam: PRESENT: dry, intact, warm. ABSENT: cyanosis, rash Results Laboratory Results: 08/01/17 04:43 08/01/17 04:43 08/01/17 08/01/17 04:43 04:43 WBC 4.0 RBC 2.77 L Hgb 8.6 L Hct 24.3 L MCV 88 MCH 31.2 MCHC 35.4 RDW 13.6 Plt Count 221 Seg Neutrophils % 80.6 H Lymphocytes % 6.5 L Monocytes % 9.6 Eosinophils % 2.7 Basophils % 0.6 Absolute Neutrophils 3.3 Absolute Lymphocytes 0.3 L Absolute Monocytes 0.4 Absolute Eosinophils 0.1 Absolute Basophils 0.0 Sodium 141.1 Potassium 3.2 L Chloride 112 H Carbon Dioxide 22 Anion Gap 7 BUN 8 Creatinine 0.64 Est GFR ( Amer) > 60 Est GFR (Non-Af Amer) > 60 Glucose 107 Calcium 8.2 L Total Bilirubin 0.5 AST 19 ALT 22 Alkaline Phosphatase 42 Total Protein 5.0 L Albumin 2.5 L Urine culture: E. Coli ESBL sensitive to Levofloxacin and Cephalosporins Blood culture 1 bottle: Staphylococcus Warneri sensitive to Levofloxacin and Cephalosporins Impressions: Chest X-Ray 07/29/17 16:21 IMPRESSION: A limited infiltrate cannot be excluded in the left base. Chest/Abdomen CTA 07/29/17 17:29 IMPRESSION: No evidence for pulmonary embolic disease. Interval development of basilar airspace consolidation which could represent atelectatic changes or pneumonic consolidation. No pleural effusions are identified. Other findings as noted above Assessment & Plan - Diagnosis (1) Lobar pneumonia Is this a current diagnosis for this admission?: Yes (2) UTI (urinary tract infection) Qualifiers: Urinary tract infection type: acute cystitis Hematuria presence: without hematuria Qualified Code(s): N30.00 - Acute cystitis without hematuria Is this a current diagnosis for this admission?: Yes (3) Syncope Qualifiers: Syncope type: vasovagal syncope Qualified Code(s): R55 - Syncope and collapse Is this a current diagnosis for this admission?: Yes (4) Multiple sclerosis, primary chronic progressive Is this a current diagnosis for this admission?: Yes (5) Hypokalemia due to inadequate potassium intake Is this a current diagnosis for this admission?: Yes - Time Time Spent with patient: 25-34 minutes Medications reviewed and adjusted accordingly: Yes Anticipated discharge: Home - Inpatient Certification Based on my medical assessment, after consideration of the patient's comorbidities, presenting symptoms, or acuity I expect that the services needed warrant INPATIENT care.: Yes I certify that my determination is in accordance with my understanding of Medicare's requirements for reasonable and necessary INPATIENT services [42 CFR 412.3e].: Yes Medical Necessity: Need Close Monitoring Due to Risk of Patient Decompensation, Need For IV Fluids, Need For Continuous Telemetry Monitoring, Need for IV Antibiotics, Risk of Complication if Not Cared For in Hospital Post Hospital Care: D/C Assistant Terminal Manager Documentation - Plan Summary Plan Summary: D/C IV Vancomycin
[2017-08-01] MEDS: TRAMADOL HCL 50 MG TABLET PO PRN (20:47)
[2017-08-01] MEDS: GABAPENTIN 300 MG CAPSULE PO SCH (23:10)
[2017-08-01] MEDS: BENZONATATE 100 MG CAPSULE PO PRN (23:10)
[2017-08-02] MEDS: ACETAMINOPHEN 325 MG TABLET PO PRN ×3 (01:08→13:42)
[2017-08-02] MEDS: LANSOPRAZOLE 30 MG TAB.RAP.DR PO SCH (05:29)
[2017-08-02] MEDS: TRAMADOL HCL 50 MG TABLET PO PRN (09:20)
[2017-08-02] MEDS: CEFEPIME 2 GM/D5W RTU 2 GM/50 ML RTUPB IV SCH ×2 (09:21→21:43)
[2017-08-02] MEDS: LEVOFLOXACIN 750 MG TABLET PO SCH (09:21)
[2017-08-02] MEDS: NORMAL SALINE 1000 ML 1,000 ML IV PRN ×2 (09:23→19:56)
[2017-08-02] MEDS: ONDANSETRON 4 MG TAB.RAPDIS PO PRN (13:41)
--- NOTE | 2017-08-02 15:07 | PDOC PROGRESS REPORT ---
Subjective Progress Note for:: 08/02/17 Subjective:: She was admitted for the management of pneumonia, she complained of nausea and headache Physical Exam Vital Signs: Temp Pulse Resp BP Pulse Ox 98.0 F 80 19 164/83 H 100 08/02/17 12:30 08/02/17 12:30 08/02/17 12:30 08/02/17 07:37 08/02/17 12:30 Intake & Output 08/01/17 08/02/17 08/03/17 06:59 06:59 06:59 Intake Total 2489 4885 120 Output Total 900 1400 800 Balance 1589 3485 -680 Weight 62.3 kg General appearance: PRESENT: no acute distress, well-developed, well-nourished Head exam: PRESENT: atraumatic, normocephalic Eye exam: PRESENT: conjunctiva pink, EOMI, PERRLA Ear exam: PRESENT: normal external ear exam Mouth exam: PRESENT: moist, tongue midline Neck exam: PRESENT: full ROM Respiratory exam: PRESENT: clear to auscultation shaji Cardiovascular exam: PRESENT: RRR, +S1, +S2 Pulses: PRESENT: normal dorsalis pedis pul, +2 pedal pulses bilateral Vascular exam: PRESENT: normal capillary refill GI/Abdominal exam: PRESENT: normal bowel sounds, soft Rectal exam: PRESENT: deferred Neurological exam: PRESENT: alert, awake, oriented to person, oriented to place , oriented to time, oriented to situation, CN II-XII grossly intact Psychiatric exam: PRESENT: appropriate affect, normal mood Skin exam: PRESENT: dry, intact, warm Results Laboratory Results: 08/01/17 04:43 08/01/17 04:43 Impressions: Chest X-Ray 07/29/17 16:21 IMPRESSION: A limited infiltrate cannot be excluded in the left base. Chest/Abdomen CTA 07/29/17 17:29 IMPRESSION: No evidence for pulmonary embolic disease. Interval development of basilar airspace consolidation which could represent atelectatic changes or pneumonic consolidation. No pleural effusions are identified. Other findings as noted above Assessment & Plan - Diagnosis (1) Lobar pneumonia Is this a current diagnosis for this admission?: Yes Plan: she will continue IV antibiotic, she is giving Zofran for nausea (2) Hypokalemia due to inadequate potassium intake Is this a current diagnosis for this admission?: Yes (3) Multiple sclerosis, primary chronic progressive Is this a current diagnosis for this admission?: Yes (4) Syncope Qualifiers: Syncope type: vasovagal syncope Qualified Code(s): R55 - Syncope and collapse Is this a current diagnosis for this admission?: Yes (5) UTI (urinary tract infection) Qualifiers: Urinary tract infection type: acute cystitis Hematuria presence: without hematuria Qualified Code(s): N30.00 - Acute cystitis without hematuria Is this a current diagnosis for this admission?: Yes
[2017-08-02] MEDS: IBUPROFEN 400 MG TABLET PO PRN (18:12)
[2017-08-02] MEDS: GABAPENTIN 300 MG CAPSULE PO SCH (21:43)
[2017-08-03] MEDS: ACETAMINOPHEN 325 MG TABLET PO PRN ×2 (01:39→12:52)
[2017-08-03] MEDS: LANSOPRAZOLE 30 MG TAB.RAP.DR PO SCH (05:20)
[2017-08-03] MEDS: NORMAL SALINE 1000 ML 1,000 ML IV PRN (06:50)
[2017-08-03] MEDS: IBUPROFEN 400 MG TABLET PO PRN ×2 (07:36→22:55)
[2017-08-03] MEDS: TRAMADOL HCL 50 MG TABLET PO PRN ×2 (10:11→22:34)
[2017-08-03] MEDS: CEFEPIME 2 GM/D5W RTU 2 GM/50 ML RTUPB IV SCH ×2 (10:14→22:36)
[2017-08-03] MEDS: LEVOFLOXACIN 750 MG TABLET PO SCH (10:14)
--- NOTE | 2017-08-03 12:46 | PDOC PROGRESS REPORT ---
Subjective Progress Note for:: 08/03/17 Subjective:: She was seen by the bedside she has no more nausea but headache still persist Physical Exam Vital Signs: Temp Pulse Resp BP Pulse Ox 99.0 F 88 20 147/86 H 99 08/03/17 07:23 08/03/17 07:23 08/03/17 07:23 08/03/17 07:23 08/03/17 07:23 Intake & Output 08/02/17 08/03/17 08/04/17 06:59 06:59 06:59 Intake Total 4885 3032 Output Total 1400 1600 Balance 3485 1432 Weight 62.3 kg 60.5 kg General appearance: PRESENT: no acute distress Eye exam: PRESENT: PERRLA Respiratory exam: PRESENT: clear to auscultation shaji Cardiovascular exam: PRESENT: +S1, +S2 Neurological exam: PRESENT: alert, CN II-XII grossly intact Results Laboratory Results: 08/01/17 04:43 08/01/17 04:43 Impressions: Chest X-Ray 07/29/17 16:21 IMPRESSION: A limited infiltrate cannot be excluded in the left base. Chest/Abdomen CTA 07/29/17 17:29 IMPRESSION: No evidence for pulmonary embolic disease. Interval development of basilar airspace consolidation which could represent atelectatic changes or pneumonic consolidation. No pleural effusions are identified. Other findings as noted above Assessment & Plan - Diagnosis (1) Lobar pneumonia Is this a current diagnosis for this admission?: Yes (2) Hypokalemia due to inadequate potassium intake Is this a current diagnosis for this admission?: Yes (3) Multiple sclerosis, primary chronic progressive Is this a current diagnosis for this admission?: Yes (4) Syncope Qualifiers: Syncope type: vasovagal syncope Qualified Code(s): R55 - Syncope and collapse Is this a current diagnosis for this admission?: Yes (5) UTI (urinary tract infection) Qualifiers: Urinary tract infection type: acute cystitis Hematuria presence: without hematuria Qualified Code(s): N30.00 - Acute cystitis without hematuria Is this a current diagnosis for this admission?: Yes
[2017-08-03] MEDS: GABAPENTIN 300 MG CAPSULE PO SCH (22:34)
[2017-08-04] MEDS: NORMAL SALINE 1000 ML 1,000 ML IV PRN ×2 (06:27→16:50)
[2017-08-04] MEDS: LANSOPRAZOLE 30 MG TAB.RAP.DR PO SCH (06:27)
[2017-08-04] MEDS: TRAMADOL HCL 50 MG TABLET PO PRN ×2 (06:50→16:53)
[2017-08-04] MEDS: ACETAMINOPHEN 325 MG TABLET PO PRN (06:50)
[2017-08-04] MEDS: CEFEPIME 2 GM/D5W RTU 2 GM/50 ML RTUPB IV SCH ×2 (11:14→21:40)
[2017-08-04] MEDS: LEVOFLOXACIN 750 MG TABLET PO SCH (11:15)
--- NOTE | 2017-08-04 17:41 | PDOC PROGRESS REPORT ---
Subjective Progress Note for:: 08/04/17 Subjective:: Patient reported intermittent headache and nausea. No reported fever or chills. She denied any chest pain or difficulty with breathing. No vomiting, or abdominal pain. Remain on IV Cefepime and oral Levofloxacin therapy. Physical Exam Vital Signs: Temp Pulse Resp BP Pulse Ox 97.8 F 96 18 132/71 H 96 08/04/17 11:44 08/04/17 14:00 08/04/17 11:44 08/04/17 11:44 08/04/17 11:44 Intake & Output 08/03/17 08/04/17 08/05/17 06:59 06:59 06:59 Intake Total 3032 5008 118 Output Total 1600 1200 Balance 1432 3808 118 Weight 60.5 kg 61 kg Physical Exam: General appearance: PRESENT: no acute distress, cooperative Head exam: PRESENT: atraumatic, normocephalic Eye exam: PRESENT: conjunctiva pink, EOMI, PERRLA. ABSENT: scleral icterus Mouth exam: PRESENT: moist Respiratory exam: PRESENT: clear to auscultation shaji, decreased breath sounds - bilaterally Cardiovascular exam: PRESENT: RRR. ABSENT: diastolic murmur, rubs, systolic murmur GI/Abdominal exam: PRESENT: normal bowel sounds, soft. ABSENT: distended, guarding, mass, organomegaly, rebound, tenderness Musculoskeletal exam: PRESENT: ambulatory - short distance in room with assistance, normal inspection Neurological exam: PRESENT: alert, awake, oriented to person, oriented to place , oriented to time, oriented to situation, CN II-XII grossly intact. ABSENT: motor sensory deficit Psychiatric exam: PRESENT: appropriate affect, normal mood. ABSENT: homicidal ideation, suicidal ideation Skin exam: PRESENT: dry, intact, warm. ABSENT: cyanosis, rash Results Laboratory Results: 08/01/17 04:43 08/01/17 04:43 Impressions: Chest X-Ray 07/29/17 16:21 IMPRESSION: A limited infiltrate cannot be excluded in the left base. Chest/Abdomen CTA 07/29/17 17:29 IMPRESSION: No evidence for pulmonary embolic disease. Interval development of basilar airspace consolidation which could represent atelectatic changes or pneumonic consolidation. No pleural effusions are identified. Other findings as noted above Assessment & Plan - Diagnosis (1) Lobar pneumonia Is this a current diagnosis for this admission?: Yes (2) UTI (urinary tract infection) Qualifiers: Urinary tract infection type: acute cystitis Hematuria presence: without hematuria Qualified Code(s): N30.00 - Acute cystitis without hematuria Is this a current diagnosis for this admission?: Yes (3) Syncope Qualifiers: Syncope type: vasovagal syncope Qualified Code(s): R55 - Syncope and collapse Is this a current diagnosis for this admission?: Yes (4) Multiple sclerosis, primary chronic progressive Is this a current diagnosis for this admission?: Yes (5) Hypokalemia due to inadequate potassium intake Is this a current diagnosis for this admission?: Yes - Time Time Spent with patient: 25-34 minutes Medications reviewed and adjusted accordingly: Yes Anticipated discharge: Home Within: within 48 hours - Inpatient Certification Based on my medical assessment, after consideration of the patient's comorbidities, presenting symptoms, or acuity I expect that the services needed warrant INPATIENT care.: Yes I certify that my determination is in accordance with my understanding of Medicare's requirements for reasonable and necessary INPATIENT services [42 CFR 412.3e].: Yes Medical Necessity: Need Close Monitoring Due to Risk of Patient Decompensation, Need For IV Fluids, Need For Continuous Telemetry Monitoring, Need for IV Antibiotics, Risk of Complication if Not Cared For in Hospital Post Hospital Care: D/C Dock Hand Documentation - Plan Summary Plan Summary: Obtain CBC with diff, BMP and Mag levels. Continue current antibiotic coverage. Maintain on NSAID and Tramadol as well as Zofran for headache and nausea management. If clinically better consider discharge home tomorrow.
[2017-08-04] MEDS: ONDANSETRON 4 MG TAB.RAPDIS PO PRN (18:39)
[2017-08-04 18:50] LABS: ABSOLUTE EOSINOPHILS # (AUTO) 0.3 10^3/uL (0.0-0.6); ABSOLUTE LYMPHOCYTES (AUTO) 0.5 10^3/uL (0.5-4.7); ABSOLUTE MONOCYTES (AUTO) 0.6 10^3/uL (0.1-1.4); ABSOLUTE NEUT (AUTO) 4.2 10^3/uL (1.7-8.2); BASOPHILS % (AUTO) 0.8 % (0-2); EOSINOPHILS % (AUTO) 5.6 % (0-6); HEMOGLOBIN 9.1 g/dL (12.0-15.5); HGB HCT DIFFERENCE 1.3; LYMPHOCYTES % (AUTO) 8.1 % (13-45); MEAN CORPUSCULAR HEMOGLOBIN 30.6 pg (27.0-33.4); MEAN CORPUSCULAR HGB CONC 35.1 g/dL (32.0-36.0); MEAN CORPUSCULAR VOLUME 87 fl (80-97); MONOCYTES % (AUTO) 10.9 % (3-13); RED BLOOD COUNT 2.99 10^6/uL (3.72-5.28); RED CELL DISTRIBUTION WIDTH 13.6 % (11.5-14.0); SEGMENTED NEUTROPHILS % (AUTO) 74.6 % (42-78); WHITE BLOOD COUNT 5.7 10^3/uL (4.0-10.5)
[2017-08-04 19:10] LABS: ANION GAP 9 (5-19); BLOOD UREA NITROGEN 11 mg/dL (7-20); CALCIUM 8.2 mg/dL (8.4-10.2); CARBON DIOXIDE 24 mmol/L (22-30); CHLORIDE 108 mmol/L (98-107); CREATININE RESULT 0.58 mg/dL (0.52-1.25); GLUCOSE 100 mg/dL (75-110); MAGNESIUM 1.7 mg/dL (1.6-2.3); POTASSIUM 3.7 mmol/L (3.6-5.0); SODIUM 141.2 mmol/L (137-145)
[2017-08-04] MEDS: IBUPROFEN 400 MG TABLET PO PRN (21:39)
[2017-08-04] MEDS: GABAPENTIN 300 MG CAPSULE PO SCH (21:39)
[2017-08-05] MEDS: NORMAL SALINE 1000 ML 1,000 ML IV PRN (03:37)
[2017-08-05] MEDS: LANSOPRAZOLE 30 MG TAB.RAP.DR PO SCH (06:50)
--- NOTE | 2017-08-05 08:47 | PDOC DISCHARGE SUMMARY ---
General - Admit/Disc Date/PCP Admission Date/Primary Care Provider: 07/30/17 00:18 JARED GARLAND Discharge Date: 08/05/17 - Discharge Diagnosis (1) Lobar pneumonia Is this a current diagnosis for this admission?: Yes (2) UTI (urinary tract infection) Is this a current diagnosis for this admission?: Yes (3) Syncope Is this a current diagnosis for this admission?: Yes (4) Multiple sclerosis, primary chronic progressive Is this a current diagnosis for this admission?: Yes (5) Hypokalemia due to inadequate potassium intake Is this a current diagnosis for this admission?: Yes - Additional Information Resuscitation Status: Full Code Discharge Diet: As Tolerated Discharge Activity: Activity As Tolerated Home Medications: Albuterol Sulfate [Proair HFA Inhalation Aerosol 8.5 gm MDI] 1 puff IH Q4 PRN Gabapentin [Neurontin 300 mg Capsule] 300 mg PO QHS 07/30/17 Benzonatate [Tessalon Perles 100 mg Capsule] 100 mg PO Q8HP PRN #60 capsule 01/17 Ibuprofen [Motrin 400 mg Tablet] 400 mg PO Q6HP PRN tablet 08/05/17 Lansoprazole [Prevacid 30 mg Odt Tablet] 30 mg PO Q6AM #30 tab.rap.dr 08/05/17 Levofloxacin [Levaquin 750 mg Tablet] 750 mg PO DAILY #5 tablet 08/05/17 Tramadol HCl [Ultram 50 mg Tablet] 50 mg PO Q6HP PRN #60 tablet 08/05/17 History of Present Illness History of Present Illness: AJITH ZHU is a 61 year old female known to my practice presented to the ED with complaint of difficulty with breathing and generalized fatigue which have been ongoing for about 2 weeks. Patient reported evaluation at local Urgent care where she was prescribed Amoxicillin and subsequently at our ED with discontinuation of Amoxicillin and prescribed Zithromax without improvement in her generalised weakness, feverish and fatigue feeling. She was found to have right thyroid lobe enlargement, during her recent office visit she was negative for Influenza A and B rapid testing. Her recent thyroid function evaluation was unrevealing about hyper or hypo functioning. Her evaluation in the ED during this visit revealed no pulmonary embolus but suggested interval development of basilar airspace disease process. She reported unproductive cough and chest tightness. No definite chest pain. No abdominal pain, nausea or vomiting. She denied any genitourinary symptoms but her urinalysis suggest possible UTI. In view of her presenting symptoms, clinical findings, and laboratory assessments she was advised admission for further evaluation and management. Her significant morbidity is multiple sclerosis. She was treated with IV Lemtrada at [facility] in June, prior to onset of her present acute illness. Hospital Course Hospital Course: Patient did respond to IV antibiotic coverage. Her urine culture did grew E.Coli ESBL and blood culture grew staph. warneri both sensitive to Levofloxacin. She received course of Cefepime and Vancomycin pending culture sensitivity report. She received potassium supplementation for episodes of hypokalemia. Her presenting fever and left shift in differential count did improved. She was able to tolerate oral antibiotic and feeding prior to discharge.She will follow up in the office as instructed upon discharge. Physical Exam Vital Signs: Temp Pulse Resp BP Pulse Ox 99.1 F 83 18 150/78 H 97 08/05/17 07:44 08/05/17 07:44 08/05/17 07:44 08/05/17 07:44 08/05/17 07:44 Intake & Output 08/04/17 08/05/17 08/06/17 06:59 06:59 06:59 Intake Total 5008 4431 Output Total 1200 Balance 3808 4431 Weight 61 kg 60.9 kg Physical Exam: General appearance: PRESENT: no acute distress, cooperative Head exam: PRESENT: atraumatic, normocephalic Eye exam: PRESENT: conjunctiva pink, EOMI, PERRLA. ABSENT: scleral icterus Mouth exam: PRESENT: moist Respiratory exam: PRESENT: clear to auscultation shaji, decreased breath sounds - bilaterally Cardiovascular exam: PRESENT: RRR. ABSENT: diastolic murmur, rubs, systolic murmur GI/Abdominal exam: PRESENT: normal bowel sounds, soft. ABSENT: distended, guarding, mass, organomegaly, rebound, tenderness Musculoskeletal exam: PRESENT: ambulatory - short distance in room with assistance, normal inspection Neurological exam: PRESENT: alert, awake, oriented to person, oriented to place , oriented to time, oriented to situation, CN II-XII grossly intact. ABSENT: motor sensory deficit Psychiatric exam: PRESENT: appropriate affect, normal mood. ABSENT: homicidal ideation, suicidal ideation Skin exam: PRESENT: dry, intact, warm. ABSENT: cyanosis, rash Results Laboratory Results: 08/04/17 18:31 08/04/17 18:31 08/04/17 08/04/17 18:31 18:31 WBC 5.7 RBC 2.99 L Hgb 9.1 L Hct 26.0 L MCV 87 MCH 30.6 MCHC 35.1 RDW 13.6 Plt Count 325 Seg Neutrophils % 74.6 Lymphocytes % 8.1 L Monocytes % 10.9 Eosinophils % 5.6 Basophils % 0.8 Absolute Neutrophils 4.2 Absolute Lymphocytes 0.5 Absolute Monocytes 0.6 Absolute Eosinophils 0.3 Absolute Basophils 0.0 Sodium 141.2 Potassium 3.7 Chloride 108 H Carbon Dioxide 24 Anion Gap 9 BUN 11 Creatinine 0.58 Est GFR ( Amer) > 60 Est GFR (Non-Af Amer) > 60 Glucose 100 Calcium 8.2 L Magnesium 1.7 Impressions: Chest X-Ray 07/29/17 16:21 IMPRESSION: A limited infiltrate cannot be excluded in the left base. Chest/Abdomen CTA 07/29/17 17:29 IMPRESSION: No evidence for pulmonary embolic disease. Interval development of basilar airspace consolidation which could represent atelectatic changes or pneumonic consolidation. No pleural effusions are identified. Other findings as noted above Qualifiers PATEINT BEING DISCHARGED WITH ANY OF THE FOLLOWING DIAGNOSIS?: No Plan Discharge Plan: D/C home today. Follow up in the office as instructed upon discharge. Time Spent: Less than 30 Minutes
[2017-08-05] MEDS: LEVOFLOXACIN 750 MG TABLET PO SCH (09:01)
[2017-08-05 09:08] VITALS: BP 134/75
[2017-08-05] MEDS: CEFEPIME 2 GM/D5W RTU 2 GM/50 ML RTUPB IV SCH (09:27)
== END 2017-08-05 10:20 | disposition home or self-care (01) | DRG 194 ==
LOC: ER 14:59 → UNDOADMIN 21:31 → EH 21:31 → 3S 23:20 → EH 07-30 00:18 → 3S 07-30 00:18
PROVIDERS: ADMIT Internal Medicine Geriatric Medicine; ATTEND Internal Medicine Geriatric Medicine
DX: J18.1 Lobar pneumonia, unspecified organism (principal); N30.00 Acute cystitis without hematuria; G35 Multiple sclerosis; E87.6 Hypokalemia; B96.20 Unspecified Escherichia coli [E. coli] as the cause of diseases classified elsewhere; F32.9 Major depressive disorder, single episode, unspecified; Z79.899 Other long term (current) drug therapy; Z87.891 Personal history of nicotine dependence
CPT/HCPCS: 36415; 51701; 71010; 71275; 80048; 80053; 81001; 82272; 82550; 82553; 82962; 83605; 83735; 84439; 84443; 84481; 84484; 85025; 87040; 87077; 87086; 87088; 87186; 93005; 93010; 94667; 94668; 99291; J0456; J0692; J0696; J1956; J3370; J3480; J3490; J7030; J7060; S0119

== ENCOUNTER → 2017-12-15 | Outpatient (CLI) | payer MEDICARE, OTHER ==
--- NOTE | 2017-12-15 14:39 | XCELERA REPORT ---
[address] [address] Lower Extremity Arterial Evaluation Name: AJITH ZHU Age: 62 yrs Gender: Female : 1955 Patient Status: Outpatient Patient Location: Study Date: 12/15/2017 10:32 AM Procedure: A color flow and duplex scan of the lower extremity arteries was performed bilaterally with velocity and waveform analysis. Ankle brachial indicies performed. Reason For Study: PVD Ordering Physician: JARED GARLAND Performed By: Miguelina Mcgrath Measurements and Calculations Right Left MARKING DEVICES ASSEMBLER PSV 108.6 120.1 cm/sec Prox PFA PSV -49.4 -69.9 cm/sec Prox SFA PSV -56.6 -93.7 cm/sec Mid SFA PSV -82.9 -97.6 cm/sec Dist SFA PSV -57.6 -95.9 cm/sec Prox Pop A PSV 54.1 42.2 cm/sec Dist SAILAJA PSV 63.5 78.9 cm/sec Dist TRAY PACKER PSV 60.3 63.5 cm/sec Jose L Pedis PSV 64.1 99.7 cm/sec Right Side Arterial Evaluation Normal velocity and triphasic waveforms noted from the Common Femoral artery to the infregeniculate vessels. 0 % stenosis. Ankle Brachial index is 1.1. Left Side Arterial Evaluation Normal velocity and triphasic waveforms noted from the Common Femoral artery to the Posterior Tibial artery. Biphsic in the Anterior Tibial artery . 0-19% stenosis at the Femoral artery. Ankle Brachial index is 1.08. Interpretation Summary No hemodynamically significant lesions in the right lower extremity only, on duplex imaging, at rest. Mild hemodynamically significant lesions in the left lower extremity only, on duplex imaging, at rest. : JARED GARLAND > Phillip Sanford
--- NOTE | 2017-12-15 14:42 | XCELERA REPORT ---
[address] [address] Lower Extremity Venous Evaluation Name: AJITH ZHU Age: 62 yrs Gender: Female : 1955 Patient Status: Outpatient Patient Location: Study Date: 12/15/2017 10:19 AM Procedure: Color flow and duplex imaging bilaterally of the veins of the lower extremities as well as the Common Femoral veins. Reason For Study: EDEMA Ordering Physician: JARED GARLAND Performed By: Miguelina Mcgrath Right Sided Venous Evaluation Normal vessel filling wall to wall, compression and augmentation as well as Colour flow down to the infrageniculate veins. Left Sided Venous Evaluation Normal vessel filling wall to wall, compression and augmentation as well as Colour flow down to the infrageniculate veins. Interpretation Summary No duplex evidence of DVT or obstruction in the bilateral lower extremities. : JARED GARLAND > Phillip Sanford
== END ==
LOC: SP 10:02
PROVIDERS: ATTEND Internal Medicine Geriatric Medicine
DX: R60.0 Localized edema (principal); I73.9 Peripheral vascular disease, unspecified
CPT/HCPCS: 93925; 93970

== ENCOUNTER → 2018-06-04 | Outpatient (CLI) | payer MEDICARE, OTHER ==
--- NOTE | 2018-06-04 16:38 | WOMENS IMAGING REPORT ---
EXAM DESCRIPTION: 3D SCREENING MAMMO BILAT COMPLETED DATE/TIME: 06/04/2018 12:55 pm REASON FOR STUDY: BILATERAL SCREENING MAMMO 3D/Z12.31 Z12.31 ENCNTR SCREEN MAMMOGRAM FOR MALIGNANT NEOPLASM OF REBEKAH COMPARISON: 2017 TECHNIQUE: Standard craniocaudal and mediolateral oblique views of each breast recorded using digita l acquisition and breast tomosynthesis. LIMITATIONS: None. FINDINGS: No masses, calcifications or architectural distortion. No areas of suspicion. Read with the assistance of CAD. .[facility] - R2 Cenova Version 1.3 .[facility] - R2 Cenova Version 1.3 .[facility] - R2 Cenova Version 2.4 .[facility] - R2 Cenova Version 2.4 .[facility] BEDS AT THE [facility] - R2 Nurses Assistant Version 9.2 IMPRESSION: NORMAL MAMMOGRAM. BIRADS 1. BREAST DENSITY: d. The breasts are extremely dense, which lowers the sensitivity of mammography. BIRAD: 1 NEGATIVE RECOMMENDATION: ROUTINE SCREENING Please continue bilateral screening mammography/tomosynthesis in June 2019 COMMENT: The patient has been notified of the results by letter per SA requirements. Additional no tification policies are in place for contacting patient with suspicious or incomplete findings. Quality ID #[id number]: The [employer] recommends an annual screening mammogram for women aged 40 years or over. This facility utilizes a reminder system to ensure that all patients receive reminder letters, and/or direct phone calls for appointments. This includes reminders for routine scr eening mammograms, diagnostic mammograms, or other Breast Imaging Interventions when appropriate. Th is patient will be placed in the appropriate reminder system. The [employer] (ACR) has developed recommendations for screening MRI of the breast s in certain patient populations, to be used in conjunction with mammography. Breast MRI surveillanc e may be appropriate for women with more than 20% lifetime risk of developing breast cancer as deter mined by genetic testing, significant family history of the disease, or history of mantle radiation f or Hodgkins Disease. ACR Practice Guidelines 2008. DBT Technology DBT is a type of tomographic mammography. With conventional mammography, overlapping breast tissue ma y make lesions difficult to detect, even with good compression. DBT uses an x-ray tube that rotates a round the breast, taking images at different angles. These images are then combined to create thin sl ices of the breast that the radiologist can view as a 3D reconstruction. The [employer] unit can perform full-field digital mammograms (2D imaging); or DBT (3D imaging); or both, in a combination mode that quickly performs both the mammogram and the tomosynthesis scan while the breast is still compressed. PQRS 6045F: Fluoroscopic imaging is not utilized for breast tomosynthesis. TECHNICAL DOCUMENTATION: FINDING NUMBER: (1) ASSESSMENT: (1) JOB ID: [id number] [employer]- All Rights Reserved Reading location - IP/workstation name: [facility] BEDS AT THE [facility]
== END ==
LOC: WI 11:17
PROVIDERS: ATTEND Internal Medicine Geriatric Medicine
DX: Z12.31 Encounter for screening mammogram for malignant neoplasm of breast (principal)
CPT/HCPCS: 77063; 77067

== ENCOUNTER 2018-09-13 05:52 | Emergency (ER) | payer MEDICARE, OTHER ==
[2018-09-13] MEDS ORDERED: ONDANSETRON HCL INJ/PF 4 MG/2 ML SDV IV ONE (06:07)
[2018-09-13] MEDS ORDERED: NORMAL SALINE 1000 ML 1,000 ML IV ONE (06:07)
[2018-09-13 06:32] LABS: HEMATOCRIT 49.7 % (36.0-47.0); HEMOGLOBIN 16.7 g/dL (12.0-15.5); MEAN CORPUSCULAR HEMOGLOBIN 29.5 pg (27.0-33.4); MEAN CORPUSCULAR HGB CONC 33.6 g/dL (32.0-36.0); MEAN CORPUSCULAR VOLUME 88 fl (80-97); PLATELET COUNT 322 10^3/uL (150-450); RED BLOOD COUNT 5.67 10^6/uL (3.72-5.28); RED CELL DISTRIBUTION WIDTH 13.5 % (11.5-14.0); WHITE BLOOD COUNT 18.9 10^3/uL (4.0-10.5)
[2018-09-13 06:49] LABS: ALANINE AMINOTRANSFERASE 44 U/L (9-52); ALBUMIN 4.5 g/dL (3.5-5.0); ALKALINE PHOSPHATASE 80 U/L (38-126); ANION GAP 17 (5-19); ASPARTATE AMINO TRANSFERASE 24 U/L (14-36); BILIRUBIN,DIRECT 0.4 mg/dL (0.0-0.4); BILIRUBIN,TOTAL 0.9 mg/dL (0.2-1.3); BLOOD UREA NITROGEN 14 mg/dL (7-20); CALCIUM 9.3 mg/dL (8.4-10.2); CARBON DIOXIDE 23 mmol/L (22-30); CHLORIDE 103 mmol/L (98-107); GLUCOSE 151 mg/dL (75-110); LIPASE 165.1 U/L (23-300); POTASSIUM 4.6 mmol/L (3.6-5.0); SODIUM 142.9 mmol/L (137-145); TOTAL PROTEIN 7.4 g/dL (6.3-8.2)
[2018-09-13 06:52] LABS: ABSOLUTE LYMPHOCYTES# (MANUAL) 0.2 10^3/uL (0.5-4.7); ABSOLUTE MONOCYTES # (MANUAL) 0.2 10^3/uL (0.1-1.4); ABSOLUTE NEUTROPHILS# (MANUAL) 18.5 10^3/uL (1.7-8.2); BASOPHILS % (MANUAL) 0 % (0-2); EOSINOPHILS % (MANUAL) 0 % (0-6); LYMPHOCYTES % (MANUAL) 1 % (13-45); MONOCYTES % (MANUAL) 1 % (3-13); SEGMENTED NEUTROPHILS % (MAN) 98 % (42-78); TOTAL CELLS COUNTED 100
[2018-09-13 06:53] LABS: PLATELET COMMENT ADEQUATE; RBC MORPHOLOGY COMMENT NORMO-CYTIC/CHROMIC
[2018-09-13] MEDS ORDERED: PROMETHAZINE HCL INJ 25 MG/1 ML VIAL IV ONE (07:12)
[2018-09-13] MEDS ORDERED: MORPHINE SULFATE 10 MG/ML INJ IV ONE (07:12)
--- NOTE | 2018-09-13 07:18 | ER Document Report ---
ED General - General Chief Complaint: Nausea/Vomiting Stated Complaint: VOMITING Time Seen by Provider: 09/13/18 06:06 TRAVEL OUTSIDE OF THE [place] IN LAST 30 DAYS: No - HPI Notes: Patient is a 63-year-old female with MS that presents to the emergency department for chief complaint of abdominal pain nausea and vomiting. Patient received a Lemtrada treatment 1 week ago for her MS. She states that because of the immune suppression she was put on valacyclovir and steroids. Patient started having nausea and vomiting shortly after the infusion and was seen at an urgent care facility who diagnosed her with H. pylori. Patient states she was prescribed amoxicillin, clarithromycin, omeprazole and Zofran but she has been unable to keep those medications down. The Zofran is not helping with her nausea. She is concerned she is becoming dehydrated. She reports an epigastric abdominal pain that radiates to her suprapubic region. The pain has been constant for the last few days. She states the pain is worse with vomiting and relieved with nothing. She denies any fevers or chills, cough and congestion, dysuria urinary frequency and headaches. Past Medical History: MS Past Surgical History: Reviewed in chart Social History: Denies drugs alcohol and tobacco Family History: Reviewed and noncontributory for presenting illness Allergies: Reviewed, see documented allergy list. REVIEW OF SYSTEMS: CONSTITUTIONAL : No fever No chills No diaphoresis No recent illness EENT: No vision changes No congestion No sore throat CARDIOVASCULAR: No chest pain No palpitations RESPIRATORY: No shortness of breath No cough No difficulty breathing GASTROINTESTINAL: abdominal pain nausea vomiting No diarrhea GENITOURINARY: No dysuria No hematuria No difficulty urinating MUSCULOSKELETAL: No back pain No leg pain No arm pain SKIN: No rashes No lesions LYMPHATIC: No swollen, enlarged glands. NEUROLOGICAL: No lightheadedness No headache No weakness No paresthesias PSYCHIATRIC: No anxiety No depression PHYSICAL EXAMINATION: Vital signs reviewed, nursing noted reviewed. GENERAL: Well-appearing, well-nourished and in no acute distress. HEAD: Atraumatic, normocephalic. EYES: Eyes appear normal, extraocular movements intact, sclera anicteric, conjunctiva are normal. ENT: nares patent, oropharynx clear without exudates. Dry mucous membranes. NECK: Normal range of motion, supple without lymphadenopathy LUNGS: Breath sounds clear to auscultation bilaterally and equal. No wheezes rales or rhonchi. HEART: Regular rate and rhythm without murmurs ABDOMEN: Soft, epigastric tenderness, normoactive bowel sounds. No rebound, guarding, or rigidity. No masses appreciated. EXTREMITIES: Nontender, good range of motion, no pitting or edema. NEUROLOGICAL: No focal neurological deficits. Moves all extremities spontaneously Motor and sensory grossly intact on exam. PSYCH: Normal mood, normal affect. SKIN: Warm, Dry, normal turgor, no rashes or lesions noted on exposed skin - Related Data Allergies/Adverse Reactions: No Known Allergies Allergy (Verified 09/13/18 05:54) Past Medical History - Social History Smoking Status: Never Smoker Family History: Reviewed & Not Pertinent Renal/ Medical History: Denies: Hx Peritoneal Dialysis Psychiatric Medical History: Reports: Hx Depression Past Surgical History: Reports: Hx Tubal Ligation - Immunizations Hx Diphtheria, Pertussis, Tetanus Vaccination: Yes Review of Systems - Review of Systems Notes: Dictated Physical Exam - Vital signs Vitals: Temp Pulse Resp BP Pulse Ox 97.5 F 83 19 154/88 H 99 09/13/18 05:57 09/13/18 05:57 09/13/18 05:57 09/13/18 05:57 09/13/18 05:57 - Notes Notes: Dictated Course - Re-evaluation Re-evalutation: 09/13/18 07:18 Vitals reviewed. Nursing notes reviewed. Patient given IV hydration, Zofran and morphine for symptomatic management. On reevaluation she was still feeling nauseated but had not vomited, at this time patient was given a dose of Phenergan IV for her continued nausea. 09/13/18 10:53 Patient was reevaluated and has tolerated drinking and eating. She is now up and appears much better. She states her nausea is significantly improved. Her workup today is unremarkable. She is able to tolerate her home medications. I do not see any signs of acute infection or sepsis. Her nausea and vomiting may be related to the H. pylori which she has medication for and will continue taking as already prescribed. I will add Phenergan suppositories for her to take at home if she is unable to tolerate the oral Zofran. She will follow with her primary care and neurology for further management. She will return for new or worsening symptoms. She was discharged home in stable condition. Laboratory 09/13/18 09/13/18 09/13/18 06:21 06:21 09:00 WBC 18.9 H RBC 5.67 H Hgb 16.7 H Hct 49.7 H MCV 88 MCH 29.5 MCHC 33.6 RDW 13.5 Plt Count 322 Total Counted 100 Seg Neutrophils % Not Reportable Seg Neuts % (Manual) 98 H Lymphocytes % Not Reportable Lymphocytes % (Manual) 1 L Monocytes % Not Reportable Monocytes % (Manual) 1 L Eosinophils % Not Reportable Eosinophils % (Manual) 0 Basophils % Not Reportable Basophils % (Manual) 0 Absolute Neutrophils Not Reportable Abs Neuts (Manual) 18.5 H Absolute Lymphocytes Not Reportable Abs Lymphs (Manual) 0.2 L Absolute Monocytes Not Reportable Abs Monocytes (Manual) 0.2 Absolute Eosinophils Not Reportable Absolute Eos (Manual) 0.0 Absolute Basophils Not Reportable Abs Basophils (Manual) 0.0 Platelet Comment ADEQUATE RBC Morph Comment NORMO-CYTIC/CHROMIC Sodium 142.9 Potassium 4.6 Chloride 103 Carbon Dioxide 23 Anion Gap 17 BUN 14 Creatinine 0.66 Est GFR ( Amer) > 60 Est GFR (Non-Af Amer) > 60 Glucose 151 H Calcium 9.3 Total Bilirubin 0.9 Direct Bilirubin 0.4 Neonat Total Bilirubin Not Reportable Neonat Direct Bilirubin Not Reportable Neonat Indirect Bili Not Reportable AST 24 ALT 44 Alkaline Phosphatase 80 Total Protein 7.4 Albumin 4.5 Lipase 165.1 Urine Color STRAW Urine Appearance CLEAR Urine pH 7.0 Ur Specific [place] 1.016 Urine Protein 30 H Urine Glucose (UA) NEGATIVE Urine Ketones TRACE H Urine Blood NEGATIVE Urine Nitrite NEGATIVE Urine Bilirubin NEGATIVE Urine Urobilinogen NEGATIVE Ur Leukocyte Esterase NEGATIVE Urine WBC (Auto) 0 Squamous Epi Cells Auto <1 Urine Mucus (Auto) RARE Urine Ascorbic Acid NEGATIVE Abdomen/Pelvis CT 09/13/18 07:20 IMPRESSION: 1. Suspicious for early uncomplicated appendicitis. Patient CT scan was read as uncomplicated appendicitis however I discussed this with the radiologist who states that was a typo. She had some inflammatory changes around her pancreas that was read as possible early pancreatitis. This is likely reactive because of her frequent vomiting, her lipase is normal and I do not suspect acute pancreatitis. - Vital Signs Vital signs: Temp Pulse Resp BP Pulse Ox 97.5 F 83 19 154/88 H 99 09/13/18 05:57 09/13/18 05:57 09/13/18 05:57 09/13/18 05:57 09/13/18 05:57 - Laboratory Result Diagrams: 09/13/18 06:21 09/13/18 06:21 Laboratory results interpreted by me: 09/13/18 09/13/18 09/13/18 06:21 06:21 09:00 WBC 18.9 H RBC 5.67 H Hgb 16.7 H Hct 49.7 H Seg Neuts % (Manual) 98 H Lymphocytes % (Manual) 1 L Monocytes % (Manual) 1 L Abs Neuts (Manual) 18.5 H Abs Lymphs (Manual) 0.2 L Glucose 151 H Urine Protein 30 H Urine Ketones TRACE H Discharge - Discharge Clinical Impression: H. pylori infection Vomiting Qualifiers: Vomiting type: unspecified Vomiting Intractability: non-intractable Nausea presence: with nausea Qualified Code(s): R11.2 - Nausea with vomiting, unspecified Abdominal pain Qualifiers: Abdominal location: upper abdomen, unspecified Qualified Code(s): R10.10 - Upper abdominal pain, unspecified Condition: Stable Disposition: HOME, SELF-CARE Instructions: Abdominal Pain ([facility]), Vomiting ([facility]) Additional Instructions: Please return to the emergency department if you have any worsening, or concern of your symptoms. Please return to the emergency department if you develop chest pain, difficulty breathing, severe abdominal pain, or ongoing vomiting. Please follow-up with your primary care physician in 2-3 days and any other recommended physicians. If prescribed, take all medications as directed. If you have any questions or concerns do not hesitate to return the emergency department for evaluation. Continue taking the medications prescribed to you for the H. pylori infection as directed Prescriptions: Promethazine HCl 25 mg RC Q6 PRN #20 supp.rect PRN Reason: Nausea Referrals: JARED GARLAND MD [Primary Care Provider] - Follow up in 3-5 days
--- NOTE | 2018-09-13 09:10 | RADIOLOGY REPORT (SQ) ---
EXAM DESCRIPTION: CT ABD/PELVIS WITH IV ONLY COMPLETED DATE/TIME: 09/13/2018 8:37 am REASON FOR STUDY: abdominal pain COMPARISON: None. TECHNIQUE: CT scan of the abdomen and pelvis performed using helical scanning technique with dynamic intravenous contrast injection. No oral contrast. Images reviewed with lung, soft tissue, and bone windows. Reconstructed coronal and sagittal MPR images reviewed. Delayed images for evaluation of the urinary system also acquired. All images stored on PACS. All CT scanners at this facility use dose modulation, iterative reconstruction, and/or weight based d osing when appropriate to reduce radiation dose to as low as reasonably achievable (ALARA). [facility]: Dose Right [facility]: CareDose [facility]: Dose Right [facility]: Teradose 4D [facility]: Zilico CONTRAST TYPE AND DOSE: contrast/concentration: Isovue 350.00 mg/ml; Total Contrast Delivered: 65.0 ml; Total Saline Delivered: 65.0 ml RENAL FUNCTION: Creatinine 0.7 RADIATION DOSE: CT Rad equipment meets quality standard of care and radiation dose reduction techniq ues were employed. CTDIvol: 5.2 - 6.6 mGy. DLP: 596 mGy-cm.. LIMITATIONS: None. FINDINGS: LOWER CHEST: No significant findings. No nodules or infiltrates. LIVER: Normal size. No masses. No dilated ducts. SPLEEN: Normal size. No focal lesions. PANCREAS: Very slight haziness along the pancreatic tail particularly. Strandy inflammatory changes may be present. Homogeneous pancreatic enhancement without duct dilatation. No drainable or loculat ed fluid collections or regional mass or adenopathy. GALLBLADDER: No identified stones by CT criteria. No inflammatory changes to suggest cholecystitis. ADRENAL GLANDS: No significant masses or asymmetry. RIGHT KIDNEY AND URETER: No solid masses. No significant calcification. No hydronephrosis or hydroure ter. LEFT KIDNEY AND URETER: No solid masses. No significant calcification. No hydronephrosis or hydrouret er. AORTA AND VESSELS: No aneurysm. No dissection. Renal arteries, SMA, celiac without stenosis. RETROPERITONEUM: No retroperitoneal adenopathy, hemorrhage or masses. BOWEL AND PERITONEAL CAVITY: No masses or inflammatory changes. No free fluid or peritoneal masses. APPENDIX: Not visualized. PELVIS: Mild bladder distention but no stones or mass. No pelvic mass or free fluid. ABDOMINAL WALL: No masses. No hernias. BONES: Scoliosis. No fracture or bone lesion. OTHER: No other significant finding. IMPRESSION: 1. Suspicious for early uncomplicated appendicitis. TECHNICAL DOCUMENTATION: JOB ID: [id number] Quality ID # [id number]: Final reports with documentation of one or more dose reduction techniques (e.g., Au tomated exposure control, adjustment of the mA and/or kV according to patient size, use of iterative reconstruction technique) 2010 [employer] All Rights Reserved Reading location - IP/workstation name: [email or web address]
[2018-09-13 10:04] LABS: APPEARANCE,URINE CLEAR; BILIRUBIN,URINE NEGATIVE (NEGATIVE); COLOR,URINE STRAW; GLUCOSE, URINE NEGATIVE (NEGATIVE); KETONES,URINE TRACE mg/dL (NEGATIVE); LEUKOCYTE ESTERASE,URINE NEGATIVE (NEGATIVE); NITRITE,URINE NEGATIVE (NEGATIVE); PROTEIN,URINE 30 mg/dL (NEGATIVE); URINE SPECIFIC GRAVITY 1.016; UROBILINOGEN,URINE NEGATIVE mg/dL (<2.0)
[2018-09-13 11:23] VITALS: BP 133/93
== END 2018-09-13 11:23 | disposition home or self-care (01) ==
LOC: ER 05:52
DX: A04.8 Other specified bacterial intestinal infections (principal); R11.2 Nausea with vomiting, unspecified; R10.13 Epigastric pain; G35 Multiple sclerosis
CPT/HCPCS: 99284; 96361; 96374; 96375; 36415; 83690; 85025; 80053; 81001; 74177; J2270; J2550; J2405; J7030

== ENCOUNTER 2018-09-13 17:54 | Inpatient (IN) | payer MEDICARE, OTHER ==
[2018-09-13] MEDS ORDERED: PROMETHAZINE HCL INJ 50 MG/1 ML VIAL IM PRN (18:12)
--- NOTE | 2018-09-13 18:14 | ER Document Report ---
ED Medical Screen (RME) - General Chief Complaint: Nausea/Vomiting Stated Complaint: NAUSEA/VOMITING Time Seen by Provider: 09/13/18 18:07 Mode of Arrival: Wheelchair Information source: Patient, Relative TRAVEL OUTSIDE OF THE [place] IN LAST 30 DAYS: No - HPI Patient complains to provider of: vomiting Onset: Just prior to arrival - pt seen here earlier this am for similar symptoms -- continued to vomit at home and can't keep anything down. Here for re-eval - Related Data Allergies/Adverse Reactions: No Known Allergies Allergy (Verified 09/13/18 05:54) Past Medical History Renal/ Medical History: Denies: Hx Peritoneal Dialysis Psychiatric Medical History: Reports: Hx Depression Past Surgical History: Reports: Hx Tubal Ligation - Immunizations Hx Diphtheria, Pertussis, Tetanus Vaccination: Yes History of Influenza Vaccine for 08/2017 - 01/2018 Season: Refused Physical Exam - Vital signs Vitals: Temp Pulse Resp BP Pulse Ox 97.8 F 94 18 165/91 H 100 09/13/18 18:00 09/13/18 18:00 09/13/18 18:00 09/13/18 18:00 09/13/18 18:00 Course - Vital Signs Vital signs: Temp Pulse Resp BP Pulse Ox 97.8 F 94 18 165/91 H 100 09/13/18 18:00 09/13/18 18:00 09/13/18 18:00 09/13/18 18:00 09/13/18 18:00 Doctor's Discharge - Discharge Referrals: JARED GARLAND MD [Primary Care Provider] - Follow up as needed
[2018-09-13] MEDS: PROMETHAZINE HCL INJ 50 MG/1 ML VIAL ONE ×2 (18:51→18:55)
[2018-09-13] MEDS ORDERED: MORPHINE SULFATE 10 MG/ML INJ IV ONE (20:13)
[2018-09-13] MEDS ORDERED: NORMAL SALINE 1000 ML 1,000 ML IV ONE (20:13)
--- NOTE | 2018-09-13 20:21 | ER Document Report ---
ED GI/ - General Chief Complaint: Nausea/Vomiting Stated Complaint: NAUSEA/VOMITING Time Seen by Provider: 09/13/18 18:07 Mode of Arrival: Wheelchair Notes: Patient is a 63-year-old female that comes to the emergency department for chief complaint of persistent vomiting for the past 3 days. She states initially she was seen by urgent care, had a positive blood test for H. pylori and was placed on antibiotics and PPI for this, states that the problem is she cannot keep these down. She was seen here earlier today, she states she felt much better before she went home but after going home despite having Phenergan suppositories she continued to vomit. She denies hematemesis or hematochezia. She denies fever although did feel initial chills 2 days ago. She had a CAT scan earlier today which was negative for any acute findings. Past medical history of tubal ligation, no other abdominal/pelvic surgeries. She denies smoking, alcohol, recreational drugs, high caffeine or NSAID use. She has MS, took Lemtrada 1 week ago for this, was put on valcyclovir and steroids. Patient started having nausea and vomiting shortly after Lemtrada infusion reportedly. She denies diarrhea, headache, chest pain, shortness of breath, fever. TRAVEL OUTSIDE OF THE [place] IN LAST 30 DAYS: No - Related Data Allergies/Adverse Reactions: No Known Allergies Allergy (Verified 09/13/18 05:54) Past Medical History - General Information source: Patient, Relative - Social History Smoking Status: Never Smoker Frequency of alcohol use: None Drug Abuse: None Lives with: Family Family History: Reviewed & Not Pertinent Patient has suicidal ideation: No Patient has homicidal ideation: No Renal/ Medical History: Denies: Hx Peritoneal Dialysis Psychiatric Medical History: Reports: Hx Depression Past Surgical History: Reports: Hx Tubal Ligation - Immunizations Hx Diphtheria, Pertussis, Tetanus Vaccination: Yes Review of Systems - Review of Systems Constitutional: No symptoms reported EENT: No symptoms reported Cardiovascular: No symptoms reported Respiratory: No symptoms reported Gastrointestinal: See HPI Genitourinary: No symptoms reported Female Genitourinary: No symptoms reported Musculoskeletal: No symptoms reported Skin: No symptoms reported Hematologic/Lymphatic: No symptoms reported Neurological/Psychological: No symptoms reported Physical Exam - Vital signs Vitals: Temp Pulse Resp BP Pulse Ox 97.8 F 94 18 165/91 H 100 09/13/18 18:00 09/13/18 18:00 09/13/18 18:00 09/13/18 18:00 09/13/18 18:00 - Notes Notes: GENERAL: Patient disheveled, appears very tired, appears to have just vomited. HEAD: Normocephalic, atraumatic. EYES: Pupils equal, round, and reactive to light. Extraocular movements intact. ENT: Oral mucosa dry, tongue midline. Oropharynx unremarkable. Airway patent. Nares patent, no nasal septal hematoma, TM's intact. NECK: Full range of motion. Supple. Trachea midline. LUNGS: Clear to auscultation bilaterally, no wheezes, rales, or rhonchi. No respiratory distress. HEART: Regular rate and rhythm. No murmur ABDOMEN: Tender generally which is very mild, increased tenderness in the epigastric area but still no guarding, no rigidity, no rebound tenderness. Unremarkable bowel sounds. GENITOURINARY: Deferred EXTREMITIES: Moves all 4 extremities spontaneously. No edema, normal radial and dorsalis pedis pulses bilaterally. No cyanosis. BACK: no cervical, thoracic, lumbar midline tenderness. No saddle anesthesia, normal distal neurovascular exam. NEUROLOGICAL: Alert and oriented x3. Normal speech. [cranial nerves II through XII grossly intact]. PSYCH: Normal affect, normal mood. SKIN: Warm, dry, normal turgor. No rashes or lesions noted. Course - Re-evaluation Re-evalutation: Patient is uncomfortable on evaluation, she is generalized abdominal tenderness which is mild, she has slightly more epigastric tenderness. Vital signs unremarkable. Review of CAT scan and note earlier indicates that CAT scan was initially read incorrectly and radiologist reported there were no acute findings except possible mild pancreatitis, lipase has been trended and is normal. Bilirubin is normal, LFTs normal. EKG with no T wave inversions or ST segment changes in consecutive leads, troponin is not elevated, does not appear to be cardiac cause of vomiting. Patient has leukocytosis, however she has recently completed a course of steroids, leukocytosis unchanged from prior. Suspect reactive from vomiting and elevated from prednisone. Patient does not have any hematochezia or hematemesis. Today patient has been given Zofran, Phenergan, she was given Protonix, she has been given pain medication, she has been given IV fluids, intermittently she feels better, however then she attempts to drink or just for the past of time she vomits. She has vomited 3 times since arrival to the emergency department including twice after medications during her stay here the second time. Because of very recent prednisone use, recent diagnosis with H. pylori which she could not tolerate the treatment for because of vomiting, and other negative results I suspect patient does have gastritis/esophagitis causing intractable vomiting. Could also be side effects of her new medication for MS. Discussed with patient, will discuss with her provider for potential admission for intractable vomiting. Patient states she has not countable going home, states she is too exhausted from vomiting and she cannot take her medicine or eat at home. 09/14/18 22:[address] Desai, patient's provider, patient will be admitted to the hospital for intractable vomiting, dehydration, suspected gastritis. - Vital Signs Vital signs: Temp Pulse Resp BP Pulse Ox 97.8 F 94 19 170/106 H 100 09/13/18 18:00 09/13/18 18:00 09/14/18 00:01 09/14/18 00:00 09/13/18 23:00 - Laboratory Result Diagrams: 09/13/18 20:40 09/13/18 20:40 Laboratory results interpreted by me: 09/13/18 09/13/18 09/13/18 20:40 20:40 21:36 WBC 18.9 H Seg Neuts % (Manual) 95 H Lymphocytes % (Manual) 1 L Abs Neuts (Manual) 18.0 H Abs Lymphs (Manual) 0.2 L Glucose 145 H Urine Protein 100 H Urine Ketones 20 H Discharge - Discharge Clinical Impression: Upper abdominal pain, Dehydration Intractable vomiting Qualifiers: Vomiting type: unspecified Nausea presence: with nausea Qualified Code(s): R11.2 - Nausea with vomiting, unspecified Condition: Stable Disposition: ADMITTED OBSERVATION Admitting Provider: Lloyd Unit Admitted: Telemetry
[2018-09-13 20:55] LABS: HEMATOCRIT 45.7 % (36.0-47.0); HEMOGLOBIN 15.5 g/dL (12.0-15.5); MEAN CORPUSCULAR HEMOGLOBIN 29.8 pg (27.0-33.4); MEAN CORPUSCULAR HGB CONC 33.9 g/dL (32.0-36.0); MEAN CORPUSCULAR VOLUME 88 fl (80-97); PLATELET COUNT 284 10^3/uL (150-450); RED CELL DISTRIBUTION WIDTH 13.8 % (11.5-14.0); WHITE BLOOD COUNT 18.9 10^3/uL (4.0-10.5)
[2018-09-13 21:12] LABS: ALANINE AMINOTRANSFERASE 39 U/L (9-52); ALBUMIN 3.8 g/dL (3.5-5.0); ALKALINE PHOSPHATASE 72 U/L (38-126); ANION GAP 13 (5-19); ASPARTATE AMINO TRANSFERASE 22 U/L (14-36); BILIRUBIN,DIRECT 0.3 mg/dL (0.0-0.4); BILIRUBIN,TOTAL 0.9 mg/dL (0.2-1.3); BLOOD UREA NITROGEN 15 mg/dL (7-20); CALCIUM 8.8 mg/dL (8.4-10.2); CARBON DIOXIDE 25 mmol/L (22-30); CHLORIDE 104 mmol/L (98-107); GLUCOSE 145 mg/dL (75-110); LIPASE 64.3 U/L (23-300); POTASSIUM 4.7 mmol/L (3.6-5.0); SODIUM 142.1 mmol/L (137-145); TOTAL PROTEIN 6.4 g/dL (6.3-8.2)
[2018-09-13 21:19] LABS: ABSOLUTE LYMPHOCYTES# (MANUAL) 0.2 10^3/uL (0.5-4.7); ABSOLUTE MONOCYTES # (MANUAL) 0.8 10^3/uL (0.1-1.4); BASOPHILS % (MANUAL) 0 % (0-2); EOSINOPHILS % (MANUAL) 0 % (0-6); LYMPHOCYTES % (MANUAL) 1 % (13-45); MONOCYTES % (MANUAL) 4 % (3-13); SEGMENTED NEUTROPHILS % (MAN) 95 % (42-78); TOTAL CELLS COUNTED 100
[2018-09-13 21:23] LABS: TOXIC GRANULATION 1+; TOXIC VACUOLATION PRESENT
[2018-09-13 21:24] LABS: BURR CELLS 1+; HELMET CELLS 1+; OVALOCYTES 2+; PLATELET COMMENT ADEQUATE; POIKILOCYTOSIS 2+; TEAR DROP CELLS 1+
[2018-09-13 21:58] LABS: APPEARANCE,URINE CLOUDY; BILIRUBIN,URINE NEGATIVE (NEGATIVE); COLOR,URINE YELLOW; GLUCOSE, URINE NEGATIVE (NEGATIVE); KETONES,URINE 20 mg/dL (NEGATIVE); LEUKOCYTE ESTERASE,URINE NEGATIVE (NEGATIVE); NITRITE,URINE NEGATIVE (NEGATIVE); PROTEIN,URINE 100 mg/dL (NEGATIVE); URINE SPECIFIC GRAVITY 1.026; UROBILINOGEN,URINE NEGATIVE mg/dL (<2.0)
[2018-09-13] MEDS ORDERED: PROMETHAZINE HCL INJ 25 MG/1 ML VIAL IM ONE (22:18)
[2018-09-13] MEDS ORDERED: PANTOPRAZOLE SODIUM 40 MG VIAL IV ONE (22:18)
[2018-09-14] MEDS ORDERED: GLUCAGON,HUMAN RECOMB 1 MG INJ SUBCUT PRN (01:52)
[2018-09-14] MEDS ORDERED: DEXTROSE 50%-WATER 25 GM/50 ML DISP.SYRIN IV PRN ×2 (01:52)
[2018-09-14] MEDS ORDERED: DEXTROSE 40% GEL 15 GM TUBE PO PRN ×2 (01:52)
[2018-09-14] MEDS: ONDANSETRON HCL INJ/PF 4 MG/2 ML SDV IV PRN ×2 (02:17→10:00)
[2018-09-14] MEDS: MORPHINE SULFATE 10 MG/ML INJ IV PRN ×3 (04:55→21:36)
--- NOTE | 2018-09-14 06:22 | EKG REPORT ---
SEVERITY:- OTHERWISE NORMAL ECG - CORONARY SINUS RHYTHM MINIMAL ST DEPRESSION, LATERAL LEADS : Confirmed by: Jony Farah MD 14-Sep-2018 06:21:46
[2018-09-14] MEDS ORDERED: ERTAPENEM SODIUM 1 GM in NORMAL SALINE 50 ML IV SCH (11:15)
[2018-09-14] MEDS ORDERED: CEFOTAXIME SODIUM 1 GM in DEXTROSE 5%-WATER 50 ML IV SCH (11:15)
[2018-09-14] MEDS: NORMAL SALINE 1000 ML 1,000 ML IV PRN ×2 (11:32→23:56)
[2018-09-14] MEDS: PROMETHAZINE HCL INJ 25 MG/1 ML VIAL IV PRN ×2 (11:37→21:37)
--- NOTE | 2018-09-14 11:38 | PDOC H&P ---
History of Present Illness Admission Date/PCP: 09/13/18 22:47 JARED DADA Patient complains of: Nausea and vomiting History of Present Illness: AJITH ZHU is a 63 year old female known to my practice who presented to the ED with complain of nausea and vomiting over three preceding days. Patient reported that she was not able to retain anything including water because it resulted in subsequent vomiting. She reported episode of fever and chills during early phase of her ongoing acute illness. She denied associated diarrhea but reported abdominal pain across upper region but more intense over LUQ region. She was evaluated at local urgent care center and diagnosed with h. pylori infection based on point of care blood test. She denied any dysuria, flank pain or hematuria. She denied any headache, dizziness, or vertigo. No chest pain or difficulty with breathing. she denied alcohol ingestion or illicit drug usage. her medication regimen include use of Ibuprofen on prn basis for chronic pain management. She had CT scan of abdomen and pelvis on 09/2018 that revealed inflammatory changes around tail of the pancreas suggestive of pancreatitis process. Her initial evaluation in the ED was significant for leukocytosis with left shift and abnormal urinalysis. ED provider did recommend admission for further evaluation and management due to persistent nausea and vomiting. Her morbidities include Multiple sclerosis, Depression, chronic pain syndrome, IBS, Cervical spine degenerative disc disease and tension type headache. Past Medical History Psychiatric Medical History: Reports: Depression Past Surgical History Past Surgical History: Reports: Tubal Ligation Social History Lives with: Family Smoking Status: Unknown if Ever Smoked Frequency of Alcohol Use: None Hx Recreational Drug Use: No Hx Prescription Drug Abuse: No Family History Family History: Reviewed & Not Pertinent Parental Family History Reviewed: Yes Children Family History Reviewed: Yes Sibling(s) Family History Reviewed.: Yes Medication/Allergy Home Medications: Amoxicillin Trihydrate [Amoxil 500 mg Capsule] 1,000 mg PO Q12 09/14/18 Clarithromycin [Biaxin 500 mg Tablet] 500 mg PO Q12 09/14/18 Gabapentin [Neurontin 300 mg Capsule] 300 mg PO Q8 09/14/18 Valacyclovir HCl [Valtrex] 1,000 mg PO Q12 09/14/18 Allergies/Adverse Reactions: No Known Allergies Allergy (Verified 09/13/18 05:54) Review of Systems Constitutional: PRESENT: chills, fever(s) Eyes: PRESENT: visual disturbances Nose, Mouth, and Throat: ABSENT: as per HPI, headache(s), mouth pain, sore throat, vertigo, other Cardiovascular: ABSENT: chest pain, dyspnea on exertion, edema, orthropnea, palpitations Respiratory: ABSENT: cough, hemoptysis Gastrointestinal: PRESENT: abdominal pain, nausea, vomiting. ABSENT: as per HPI , bloating, coffee ground emesis, constipation, diarrhea, dysphagia, heartburn, hematemesis, hematochezia, melena, other Genitourinary: ABSENT: dysuria, hematuria Musculoskeletal: ABSENT: joint swelling Integumentary: ABSENT: rash, wounds Neurological: PRESENT: abnormal gait - related to her multiple sclerosis, paresthesias - related to her multiple sclerosis, weakness - lower extremities related to her multiple sclerosis Psychiatric: ABSENT: anxiety, depression, homidical ideation, suicidal ideation Endocrine: ABSENT: cold intolerance, heat intolerance, polydipsia, polyuria Hematologic/Lymphatic: ABSENT: easy bleeding, easy bruising, lymphadenopathy Allergic/Immunologic: ABSENT: seasonal rhinorrhea Physical Exam Vital Signs: Temp Pulse Resp BP Pulse Ox 98.2 F 86 20 160/84 H 94 09/14/18 08:53 09/14/18 08:53 09/14/18 08:53 09/14/18 08:53 09/14/18 08:53 Intake & Output 09/13/18 09/14/18 09/15/18 06:59 06:59 06:59 Intake Total 0 Balance 0 Weight 62.9 kg General appearance: PRESENT: mild distress - related to her abdominal pain, well -developed, well-nourished Head exam: PRESENT: atraumatic, normocephalic Eye exam: PRESENT: conjunctiva pink, EOMI, PERRLA. ABSENT: scleral icterus Ear exam: PRESENT: normal external ear exam Mouth exam: PRESENT: moist, neck supple Neck exam: PRESENT: full ROM. ABSENT: carotid bruit, JVD, lymphadenopathy, thyromegaly Respiratory exam: PRESENT: clear to auscultation shaji Cardiovascular exam: PRESENT: RRR. ABSENT: diastolic murmur, rubs, systolic murmur Pulses: PRESENT: +1 pedal pulses bilateral Vascular exam: PRESENT: normal capillary refill. ABSENT: pallor GI/Abdominal exam: PRESENT: guarding - minimal to deep palpation, normal bowel sounds, soft, tenderness - upper quadrant but more over LUQ region. ABSENT: ascites, Gold's sign, organolmegaly, rebound Rectal exam: PRESENT: deferred Extremities exam: ABSENT: pedal edema Musculoskeletal exam: PRESENT: deformity - related to multiple joint involvement with arthritis, full ROM Neurological exam: PRESENT: alert, awake, oriented to person, oriented to place , oriented to time, oriented to situation, CN II-XII grossly intact, other - weakness in lower extremities relatd to her multipe sclerosis. ABSENT: motor sensory deficit Psychiatric exam: PRESENT: appropriate affect, normal mood. ABSENT: homicidal ideation, suicidal ideation Skin exam: PRESENT: dry, intact, warm. ABSENT: cyanosis, rash Results Laboratory Results: I reviewed her lab results on [place] and form significant part of my medical decision making in this case. Impressions: CT abdomen and pelvis on 09/13/18 at 08:37 am Suspicious for early uncomplicated pancreatitis. Status: Imported from PACS Assessment & Plan - Diagnosis (1) Acute pancreatitis Qualifiers: Pancreatitis type: unspecified pancreatitis type Acute pancreatitis complication: unspecified Qualified Code(s): K85.90 - Acute pancreatitis without necrosis or infection, unspecified Is this a current diagnosis for this admission?: Yes Plan: Maintain on NPO status. Start on IV fluid support and anti emetic therapy as well as pain management. (2) Suspected urinary tract infection Is this a current diagnosis for this admission?: Yes Plan: Start on IV Primaxin for broader coverage of GI and in view of nationwide shortage of Cefotaxime. Obtain urine culture from U/A specimen. (3) Multiple sclerosis, primary chronic progressive Is this a current diagnosis for this admission?: Yes Plan: Continue supportive care. - Time Time Spent: 50 to 70 Minutes Medications reviewed and adjusted accordingly: Yes Anticipated discharge: Home Within: Other - Inpatient Certification Based on my medical assessment, after consideration of the patient's comorbidities, presenting symptoms, or acuity I expect that the services needed warrant INPATIENT care.: Yes I certify that my determination is in accordance with my understanding of Medicare's requirements for reasonable and necessary INPATIENT services [42 CFR 412.3e].: Yes Medical Necessity: Need Close Monitoring Due to Risk of Patient Decompensation, Need For IV Fluids, Need for Pain Control, Need for IV Antibiotics, Risk of Complication if Not Cared For in Hospital Post Hospital Care: D/C Rubble Placer Documentation - Plan Summary Plan Summary: See admitting attending physician orders. I will change her admission status to full admission from observation due to concern for persistent nausea and vomiting, acute pancreatitis with LUQ abdominal pain, UTI with elevated leukocytosis above 18,000.
[2018-09-14] MEDS: IMIPENEM/CILASTATIN SODIUM 500 MG in NORMAL SALINE 100 ML IV SCH ×3 (12:15→23:52)
[2018-09-14 12:59] LABS: HEMATOCRIT 44.8 % (36.0-47.0); HEMOGLOBIN 15.2 g/dL (12.0-15.5); MEAN CORPUSCULAR HEMOGLOBIN 29.6 pg (27.0-33.4); MEAN CORPUSCULAR HGB CONC 33.8 g/dL (32.0-36.0); MEAN CORPUSCULAR VOLUME 88 fl (80-97); PLATELET COUNT 212 10^3/uL (150-450); RED BLOOD COUNT 5.12 10^6/uL (3.72-5.28); RED CELL DISTRIBUTION WIDTH 13.6 % (11.5-14.0); WHITE BLOOD COUNT 19.6 10^3/uL (4.0-10.5)
[2018-09-14 13:14] LABS: ALANINE AMINOTRANSFERASE 41 U/L (9-52); ALBUMIN 3.6 g/dL (3.5-5.0); ALKALINE PHOSPHATASE 68 U/L (38-126); AMYLASE 55 U/L (30-110); ANION GAP 16 (5-19); ASPARTATE AMINO TRANSFERASE 33 U/L (14-36); BILIRUBIN,DIRECT 0.5 mg/dL (0.0-0.4); BILIRUBIN,TOTAL 1.2 mg/dL (0.2-1.3); BLOOD UREA NITROGEN 17 mg/dL (7-20); CALCIUM 8.4 mg/dL (8.4-10.2); CARBON DIOXIDE 20 mmol/L (22-30); CHLORIDE 106 mmol/L (98-107); GLUCOSE 100 mg/dL (75-110); LIPASE 104.6 U/L (23-300); POTASSIUM 4.4 mmol/L (3.6-5.0); SODIUM 142.1 mmol/L (137-145); TOTAL PROTEIN 6.2 g/dL (6.3-8.2)
[2018-09-14 13:15] LABS: ABSOLUTE MONOCYTES # (MANUAL) 0.8 10^3/uL (0.1-1.4); ABSOLUTE NEUTROPHILS# (MANUAL) 18.8 10^3/uL (1.7-8.2); BASOPHILS % (MANUAL) 0 % (0-2); EOSINOPHILS % (MANUAL) 0 % (0-6); LYMPHOCYTES % (MANUAL) 0 % (13-45); MONOCYTES % (MANUAL) 4 % (3-13); PLATELET COMMENT ADEQUATE; RBC MORPHOLOGY COMMENT NORMO-CYTIC/CHROMIC; SEGMENTED NEUTROPHILS % (MAN) 96 % (42-78); TOTAL CELLS COUNTED 100; TOXIC GRANULATION SLIGHT
[2018-09-14] MEDS: GABAPENTIN 300 MG CAPSULE PO SCH ×2 (20:26→21:36)
[2018-09-14] MEDS: VALACYCLOVIR HCL 500 MG TABLET PO SCH (21:36)
[2018-09-14] MEDS ORDERED: (PENDING PHARMACY ID) (Valacyclovir Hcl [Valtrex] 1,000 MG) PO SCH (22:00)
[2018-09-15] MEDS: ACETAMINOPHEN 325 MG TABLET PO PRN ×2 (02:45→15:21)
[2018-09-15] MEDS: GABAPENTIN 300 MG CAPSULE PO SCH ×3 (05:27→21:30)
[2018-09-15] MEDS: IMIPENEM/CILASTATIN SODIUM 500 MG in NORMAL SALINE 100 ML IV SCH ×3 (05:27→17:24)
[2018-09-15 10:05] LABS: HEMATOCRIT 37.7 % (36.0-47.0); MEAN CORPUSCULAR HGB CONC 33.8 g/dL (32.0-36.0); MEAN CORPUSCULAR VOLUME 89 fl (80-97); PLATELET COUNT 229 10^3/uL (150-450); RED BLOOD COUNT 4.23 10^6/uL (3.72-5.28); RED CELL DISTRIBUTION WIDTH 13.9 % (11.5-14.0)
[2018-09-15 10:10] LABS: HEMOGLOBIN 12.7 g/dL (12.0-15.5)
[2018-09-15 10:14] LABS: ANION GAP 11 (5-19); BLOOD UREA NITROGEN 20 mg/dL (7-20); CALCIUM 7.9 mg/dL (8.4-10.2); CARBON DIOXIDE 21 mmol/L (22-30); CHLORIDE 108 mmol/L (98-107); GLUCOSE 79 mg/dL (75-110); LIPASE 106.4 U/L (23-300); SODIUM 140.4 mmol/L (137-145)
[2018-09-15 10:44] LABS: ABSOLUTE LYMPHOCYTES# (MANUAL) 0.3 10^3/uL (0.5-4.7); ABSOLUTE MONOCYTES # (MANUAL) 0.7 10^3/uL (0.1-1.4); ABSOLUTE NEUTROPHILS# (MANUAL) 15.8 10^3/uL (1.7-8.2); BAND NEUTROPHILS % (MANUAL) 1 % (3-5); BASOPHILS % (MANUAL) 1 % (0-2); EOSINOPHILS % (MANUAL) 0 % (0-6); LYMPHOCYTES % (MANUAL) 2 % (13-45); MONOCYTES % (MANUAL) 4 % (3-13); SEGMENTED NEUTROPHILS % (MAN) 92 % (42-78); TOTAL CELLS COUNTED 100
[2018-09-15 10:46] LABS: ANISOCYTOSIS SLIGHT; POLYCHROMASIA SLIGHT; TOXIC GRANULATION SLIGHT
[2018-09-15 10:47] LABS: PLATELET COMMENT ADEQUATE; TOXIC VACUOLATION PRESENT
[2018-09-15] MEDS: VALACYCLOVIR HCL 500 MG TABLET PO SCH ×2 (11:14→21:30)
[2018-09-15] MEDS: PROMETHAZINE HCL INJ 25 MG/1 ML VIAL IV PRN (12:40)
[2018-09-15] MEDS: MORPHINE SULFATE 10 MG/ML INJ IV PRN (12:40)
--- NOTE | 2018-09-15 19:01 | PDOC PROGRESS REPORT ---
Subjective Progress Note for:: 09/15/18 Subjective:: Patient had episode of elevated temperate above 101F since last clinical evaluation. Episodes of nausea and vomiting is less. Abdominal pain improving. Requesting for water to drink due to dryness of mouth since NPO in care plan. No chest pain or difficulty with breathing. Episodes of difficulty voiding that resulted in straight cath x 2. Reason For Visit: ACUTE PANCREATITIS UTI PERSISTANT NAUSEA AND VOMIT Physical Exam Vital Signs: Temp Pulse Resp BP Pulse Ox 100.0 F 108 H 16 142/85 H 99 09/14/18 23:18 09/14/18 23:18 09/14/18 23:18 09/14/18 23:18 09/14/18 23:18 Intake & Output 09/14/18 09/15/18 09/16/18 06:59 06:59 06:59 Intake Total 1400 Output Total 300 Balance 1100 Weight 62.9 kg General appearance: PRESENT: no acute distress Head exam: PRESENT: atraumatic, normocephalic Eye exam: PRESENT: conjunctiva pink, EOMI, PERRLA. ABSENT: scleral icterus Mouth exam: PRESENT: dry mucosa - fairly Respiratory exam: PRESENT: clear to auscultation shaji Cardiovascular exam: PRESENT: RRR. ABSENT: diastolic murmur, rubs, systolic murmur Vascular exam: PRESENT: normal capillary refill. ABSENT: pallor GI/Abdominal exam: PRESENT: normal bowel sounds, soft, tenderness - less intense LUQ tenderness to deep palpation.. ABSENT: distended, guarding, mass, organolmegaly, rebound Extremities exam: ABSENT: pedal edema - no definite pitting edema but she reported swelling in her fingers Musculoskeletal exam: PRESENT: deformity - related to multiple jointts involvement with arthritis Neurological exam: PRESENT: alert, awake, oriented to person, oriented to place , oriented to time, oriented to situation, CN II-XII grossly intact, motor sensory deficit - bilateral lower extremities weakness related to her multiple sclerosis Skin exam: PRESENT: dry, intact, warm. ABSENT: cyanosis, rash Results Laboratory Results: 09/14/18 12:30 09/14/18 12:30 09/14/18 09/14/18 12:30 12:30 WBC 19.6 H RBC 5.12 Hgb 15.2 Hct 44.8 MCV 88 MCH 29.6 MCHC 33.8 RDW 13.6 Plt Count 212 Seg Neutrophils % Not Reportable Lymphocytes % Not Reportable Monocytes % Not Reportable Eosinophils % Not Reportable Basophils % Not Reportable Absolute Neutrophils Not Reportable Absolute Lymphocytes Not Reportable Absolute Monocytes Not Reportable Absolute Eosinophils Not Reportable Absolute Basophils Not Reportable Sodium 142.1 Potassium 4.4 Chloride 106 Carbon Dioxide 20 L Anion Gap 16 BUN 17 Creatinine 0.61 Est GFR ( Amer) > 60 Est GFR (Non-Af Amer) > 60 Glucose 100 Calcium 8.4 Total Bilirubin 1.2 AST 33 ALT 41 Alkaline Phosphatase 68 Total Protein 6.2 L Albumin 3.6 Amylase 55 Lipase 104.6 Assessment & Plan - Diagnosis (1) Acute pancreatitis Qualifiers: Pancreatitis type: unspecified pancreatitis type Acute pancreatitis complication: unspecified Qualified Code(s): K85.90 - Acute pancreatitis without necrosis or infection, unspecified Is this a current diagnosis for this admission?: Yes Plan: Monitor her serum Lipase level if stable consider starting on clear liquid tomorrow. Encourage use of minimal ice chips and swab on stick to moisten oral mucosa. (2) Suspected urinary tract infection Is this a current diagnosis for this admission?: Yes Plan: Maintain on IV Primaxin coverage. Follow up on culture findings. (3) Multiple sclerosis, primary chronic progressive Is this a current diagnosis for this admission?: Yes Plan: Continue current medication management. Start on indwelling durant cath to relief issue of urinary retention. - Time Time Spent with patient: 25-34 minutes Medications reviewed and adjusted accordingly: Yes Anticipated discharge: Home Within: Other - Inpatient Certification Based on my medical assessment, after consideration of the patient's comorbidities, presenting symptoms, or acuity I expect that the services needed warrant INPATIENT care.: Yes I certify that my determination is in accordance with my understanding of Medicare's requirements for reasonable and necessary INPATIENT services [42 CFR 412.3e].: Yes Medical Necessity: Need Close Monitoring Due to Risk of Patient Decompensation, Need For IV Fluids, Need for Pain Control, Need for IV Antibiotics, Risk of Complication if Not Cared For in Hospital Post Hospital Care: D/C Cleaner And Trimmer Documentation - Plan Summary Plan Summary: See attending physician orders as related to above.
[2018-09-16] MEDS: IMIPENEM/CILASTATIN SODIUM 500 MG in NORMAL SALINE 100 ML IV SCH ×4 (00:12→16:57)
[2018-09-16] MEDS: MORPHINE SULFATE 10 MG/ML INJ IV PRN ×2 (00:12→12:01)
[2018-09-16 06:36] LABS: HEMATOCRIT 33.7 % (36.0-47.0); HEMOGLOBIN 11.5 g/dL (12.0-15.5); MEAN CORPUSCULAR HEMOGLOBIN 30.5 pg (27.0-33.4); MEAN CORPUSCULAR HGB CONC 34.2 g/dL (32.0-36.0); MEAN CORPUSCULAR VOLUME 89 fl (80-97); PLATELET COUNT 264 10^3/uL (150-450); RED BLOOD COUNT 3.78 10^6/uL (3.72-5.28); RED CELL DISTRIBUTION WIDTH 13.8 % (11.5-14.0); WHITE BLOOD COUNT 10.3 10^3/uL (4.0-10.5)
[2018-09-16] MEDS: GABAPENTIN 300 MG CAPSULE PO SCH ×3 (06:42→22:45)
[2018-09-16 07:01] LABS: ABSOLUTE LYMPHOCYTES# (MANUAL) 0.1 10^3/uL (0.5-4.7); ABSOLUTE MONOCYTES # (MANUAL) 0.6 10^3/uL (0.1-1.4); ABSOLUTE NEUTROPHILS# (MANUAL) 9.6 10^3/uL (1.7-8.2); BASOPHILS % (MANUAL) 0 % (0-2); BURR CELLS 1+; EOSINOPHILS % (MANUAL) 0 % (0-6); LYMPHOCYTES % (MANUAL) 1 % (13-45); MONOCYTES % (MANUAL) 6 % (3-13); OVALOCYTES SLIGHT; PLATELET COMMENT ADEQUATE; POIKILOCYTOSIS 1+; SEGMENTED NEUTROPHILS % (MAN) 93 % (42-78); TOTAL CELLS COUNTED 100
[2018-09-16 07:10] LABS: ALANINE AMINOTRANSFERASE 33 U/L (9-52); ALBUMIN 2.3 g/dL (3.5-5.0); ALKALINE PHOSPHATASE 62 U/L (38-126); ANION GAP 10 (5-19); ASPARTATE AMINO TRANSFERASE 24 U/L (14-36); BILIRUBIN,DIRECT 0.4 mg/dL (0.0-0.4); BILIRUBIN,TOTAL 0.7 mg/dL (0.2-1.3); BLOOD UREA NITROGEN 20 mg/dL (7-20); CALCIUM 7.6 mg/dL (8.4-10.2); CARBON DIOXIDE 20 mmol/L (22-30); CHLORIDE 111 mmol/L (98-107); GLUCOSE 66 mg/dL (75-110); POTASSIUM 4.1 mmol/L (3.6-5.0); SODIUM 140.8 mmol/L (137-145); TOTAL PROTEIN 4.5 g/dL (6.3-8.2)
[2018-09-16] MEDS: VALACYCLOVIR HCL 500 MG TABLET PO SCH ×2 (09:28→22:45)
[2018-09-16] MEDS: NORMAL SALINE 1000 ML 1,000 ML IV PRN (16:58)
--- NOTE | 2018-09-16 19:00 | PDOC PROGRESS REPORT ---
Subjective Progress Note for:: 09/16/18 Subjective:: Patient denied any fever, nausea, or vomiting is less. There is improvement in her abdominal pain. She is tolerating clear liquid diet presently. No chest pain or difficulty with breathing. Reason For Visit: ACUTE PANCREATITIS UTI PERSISTANT NAUSEA AND VOMIT Physical Exam Vital Signs: Temp Pulse Resp BP Pulse Ox 97.9 F 99 16 126/71 H 98 09/16/18 15:36 09/16/18 15:36 09/16/18 15:36 09/16/18 15:36 09/16/18 15:36 Intake & Output 09/15/18 09/16/18 09/17/18 06:59 06:59 06:59 Intake Total 1400 1300 874 Output Total 338 377 8666 Balance 1100 650 -316 Weight 62.9 kg 64.2 kg Physical Exam: General appearance: PRESENT: no acute distress Head exam: PRESENT: atraumatic, normocephalic Eye exam: PRESENT: conjunctiva pink, EOMI, PERRLA. ABSENT: scleral icterus Mouth exam: PRESENT: dry mucosa - fairly Respiratory exam: PRESENT: clear to auscultation shaji Cardiovascular exam: PRESENT: RRR. ABSENT: diastolic murmur, rubs, systolic murmur Vascular exam: PRESENT: normal capillary refill. ABSENT: pallor GI/Abdominal exam: PRESENT: normal bowel sounds, soft, minimal tenderness - to LUQ deep palpation. ABSENT: distended, guarding, mass, organolmegaly, rebound Extremities exam: ABSENT: pedal edema - no definite pitting edema but she reported swelling in her fingers Musculoskeletal exam: PRESENT: deformity - related to multiple joints involvement with arthritis Neurological exam: PRESENT: alert, awake, oriented to person, oriented to place , oriented to time, oriented to situation, CN II-XII grossly intact, motor sensory deficit - bilateral lower extremities weakness related to her multiple sclerosis Skin exam: PRESENT: dry, intact, warm. ABSENT: cyanosis, rash Results Laboratory Results: 09/16/18 05:39 09/16/18 05:39 09/16/18 09/16/18 09/16/18 05:39 05:39 05:39 WBC 10.3 RBC 3.78 Hgb 11.5 L Hct 33.7 L MCV 89 MCH 30.5 MCHC 34.2 RDW 13.8 Plt Count 264 Seg Neutrophils % Not Reportable Lymphocytes % Not Reportable Monocytes % Not Reportable Eosinophils % Not Reportable Basophils % Not Reportable Absolute Neutrophils Not Reportable Absolute Lymphocytes Not Reportable Absolute Monocytes Not Reportable Absolute Eosinophils Not Reportable Absolute Basophils Not Reportable Sodium 140.8 Potassium 4.1 Chloride 111 H Carbon Dioxide 20 L Anion Gap 10 BUN 20 Creatinine 0.57 Est GFR ( Amer) > 60 Est GFR (Non-Af Amer) > 60 Glucose 66 L Calcium 7.6 L Total Bilirubin 0.7 AST 24 ALT 33 Alkaline Phosphatase 62 Total Protein 4.5 L Albumin 2.3 L Lipase 74.8 Assessment & Plan - Diagnosis (1) Acute pancreatitis Qualifiers: Pancreatitis type: unspecified pancreatitis type Acute pancreatitis complication: unspecified Qualified Code(s): K85.90 - Acute pancreatitis without necrosis or infection, unspecified Is this a current diagnosis for this admission?: Yes (2) Suspected urinary tract infection Is this a current diagnosis for this admission?: Yes (3) Multiple sclerosis, primary chronic progressive Is this a current diagnosis for this admission?: Yes - Time Time Spent with patient: 25-34 minutes Medications reviewed and adjusted accordingly: Yes Anticipated discharge: Home Within: Other - Inpatient Certification Based on my medical assessment, after consideration of the patient's comorbidities, presenting symptoms, or acuity I expect that the services needed warrant INPATIENT care.: Yes I certify that my determination is in accordance with my understanding of Medicare's requirements for reasonable and necessary INPATIENT services [42 CFR 412.3e].: Yes Medical Necessity: Need Close Monitoring Due to Risk of Patient Decompensation, Need For IV Fluids, Need for Pain Control, Need for IV Antibiotics, Risk of Complication if Not Cared For in Hospital Post Hospital Care: D/C Visual Inspector Documentation - Plan Summary Plan Summary: Advance diet gradually over next 24 hours. If she continue to tolerate oral feeding,, consider transition of antibiotic to oral route and possible discharge in next 48 hours.
[2018-09-16] MEDS: ACETAMINOPHEN 325 MG TABLET PO PRN (23:21)
[2018-09-17] MEDS: IMIPENEM/CILASTATIN SODIUM 500 MG in NORMAL SALINE 100 ML IV SCH ×5 (00:48→23:24)
[2018-09-17] MEDS: GABAPENTIN 300 MG CAPSULE PO SCH ×3 (06:27→22:24)
--- NOTE | 2018-09-17 08:02 | PDOC PROGRESS REPORT ---
Subjective Progress Note for:: 09/17/18 Subjective:: No fever or chills. Tolerated clear liquid diet all yesterday. No nausea or vomiting. No significant abdominal pain. No chest pain or difficulty with breathing. Reason For Visit: ACUTE PANCREATITIS UTI PERSISTANT NAUSEA AND VOMIT Physical Exam Vital Signs: Temp Pulse Resp BP Pulse Ox 98.8 F 93 18 142/73 H 100 09/16/18 23:12 09/16/18 23:12 09/16/18 23:12 09/16/18 23:12 09/16/18 23:12 Intake & Output 09/16/18 09/17/18 09/18/18 06:59 06:59 06:59 Intake Total 1300 1310 Output Total 650 2290 Balance 650 -980 Weight 64.2 kg 67.7 kg Physical Exam: General appearance: PRESENT: no acute distress Head exam: PRESENT: atraumatic, normocephalic Eye exam: PRESENT: conjunctiva pink, EOMI, PERRLA. ABSENT: scleral icterus Mouth exam: PRESENT: dry mucosa - fairly Respiratory exam: PRESENT: clear to auscultation shaji Cardiovascular exam: PRESENT: RRR. ABSENT: diastolic murmur, rubs, systolic murmur Vascular exam: ABSENT: pallor GI/Abdominal exam: PRESENT: normal bowel sounds, soft ABSENT: tenderness. distended, guarding, mass, organomegaly, rebound Extremities exam: ABSENT: pedal edema - no definite pitting edema but she reported swelling in her fingers Musculoskeletal exam: PRESENT: deformity - related to multiple joints involvement with arthritis Neurological exam: PRESENT: alert, awake, oriented to person, oriented to place , oriented to time, oriented to situation, CN II-XII grossly intact, motor sensory deficit - bilateral lower extremities weakness related to her multiple sclerosis Skin exam: PRESENT: dry, intact, warm. ABSENT: cyanosis, rash Results Laboratory Results: 09/16/18 05:39 09/16/18 05:39 09/16/18 05:39 Lipase 74.8 Assessment & Plan - Diagnosis (1) Acute pancreatitis Qualifiers: Pancreatitis type: unspecified pancreatitis type Acute pancreatitis complication: unspecified Qualified Code(s): K85.90 - Acute pancreatitis without necrosis or infection, unspecified Is this a current diagnosis for this admission?: Yes (2) Suspected urinary tract infection Is this a current diagnosis for this admission?: Yes (3) Multiple sclerosis, primary chronic progressive Is this a current diagnosis for this admission?: Yes - Time Time Spent with patient: 25-34 minutes Medications reviewed and adjusted accordingly: Yes Anticipated discharge: Home Within: Other - Inpatient Certification Based on my medical assessment, after consideration of the patient's comorbidities, presenting symptoms, or acuity I expect that the services needed warrant INPATIENT care.: Yes I certify that my determination is in accordance with my understanding of Medicare's requirements for reasonable and necessary INPATIENT services [42 CFR 412.3e].: Yes Medical Necessity: Need Close Monitoring Due to Risk of Patient Decompensation, Need For IV Fluids, Need for IV Antibiotics, Risk of Complication if Not Cared For in Hospital Post Hospital Care: D/C Residential Program Manager Documentation - Plan Summary Plan Summary: Advance diet to full liquid consistency for breakfast and advance to mechanical soft at lunch and regular consistency at dinner if tolerated. Decrease IV fluid to KVO at 30 mL/hour. Obtain CBC with diff and CMP in am.
[2018-09-17] MEDS: VALACYCLOVIR HCL 500 MG TABLET PO SCH ×2 (11:07→22:23)
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
[2018-09-18] MEDS: GABAPENTIN 300 MG CAPSULE PO SCH ×2 (05:40→13:43)
[2018-09-18] MEDS: IMIPENEM/CILASTATIN SODIUM 500 MG in NORMAL SALINE 100 ML IV SCH ×2 (05:40→12:08)
[2018-09-18 06:13] LABS: HEMATOCRIT 33.1 % (36.0-47.0); HEMOGLOBIN 11.3 g/dL (12.0-15.5); MEAN CORPUSCULAR HEMOGLOBIN 30.1 pg (27.0-33.4); MEAN CORPUSCULAR HGB CONC 34.2 g/dL (32.0-36.0); MEAN CORPUSCULAR VOLUME 88 fl (80-97); PLATELET COUNT 385 10^3/uL (150-450); RED BLOOD COUNT 3.76 10^6/uL (3.72-5.28); RED CELL DISTRIBUTION WIDTH 13.1 % (11.5-14.0); WHITE BLOOD COUNT 3.8 10^3/uL (4.0-10.5)
[2018-09-18 06:31] LABS: ALANINE AMINOTRANSFERASE 37 U/L (9-52); ALBUMIN 2.4 g/dL (3.5-5.0); ALKALINE PHOSPHATASE 62 U/L (38-126); ANION GAP 9 (5-19); ASPARTATE AMINO TRANSFERASE 29 U/L (14-36); BILIRUBIN,DIRECT 0.1 mg/dL (0.0-0.4); BILIRUBIN,TOTAL 0.3 mg/dL (0.2-1.3); BLOOD UREA NITROGEN 11 mg/dL (7-20); CALCIUM 8.1 mg/dL (8.4-10.2); CARBON DIOXIDE 24 mmol/L (22-30); CHLORIDE 110 mmol/L (98-107); GLUCOSE 100 mg/dL (75-110); SODIUM 143.4 mmol/L (137-145); TOTAL PROTEIN 4.5 g/dL (6.3-8.2)
[2018-09-18 06:39] LABS: ABSOLUTE LYMPHOCYTES# (MANUAL) 0.3 10^3/uL (0.5-4.7); ABSOLUTE MONOCYTES # (MANUAL) 0.2 10^3/uL (0.1-1.4); ABSOLUTE NEUTROPHILS# (MANUAL) 3.3 10^3/uL (1.7-8.2); BASOPHILS % (MANUAL) 0 % (0-2); EOSINOPHILS % (MANUAL) 2 % (0-6); LYMPHOCYTES % (MANUAL) 8 % (13-45); MONOCYTES % (MANUAL) 4 % (3-13); SEGMENTED NEUTROPHILS % (MAN) 86 % (42-78); TOTAL CELLS COUNTED 100
[2018-09-18 06:42] LABS: TOXIC GRANULATION SLIGHT
[2018-09-18 06:43] LABS: OVALOCYTES 2+; PLATELET COMMENT ADEQUATE; POIKILOCYTOSIS 2+; TEAR DROP CELLS 1+
[2018-09-18] MEDS: VALACYCLOVIR HCL 500 MG TABLET PO SCH (10:22)
[2018-09-18] MEDS: NORMAL SALINE 1000 ML 1,000 ML IV PRN (11:06)
[2018-09-18 12:34] VITALS: BP 123/61
== END 2018-09-18 16:30 | disposition left against medical advice (07) | DRG 439 ==
LOC: ER 17:54 → EH 22:47 → 4N 09-14 00:50 → OBSVTOIN 09-14 11:06
PROVIDERS: ADMIT Internal Medicine Geriatric Medicine; ATTEND Internal Medicine Geriatric Medicine
DX: K85.90 Acute pancreatitis without necrosis or infection, unspecified (principal); N39.0 Urinary tract infection, site not specified; E86.0 Dehydration; G35 Multiple sclerosis; K58.9 Irritable bowel syndrome, unspecified; M50.30 Other cervical disc degeneration, unspecified cervical region; G89.4 Chronic pain syndrome; F32.9 Major depressive disorder, single episode, unspecified; Z79.899 Other long term (current) drug therapy; Z98.51 Tubal ligation status
CPT/HCPCS: 36415; 72040; 74177; 80048; 80053; 81001; 82150; 83690; 84484; 85025; 87040; 87086; 93005; 93010; 96361; 96372; 96374; 96375; 99284; G0378; J0743; J2270; J2405; J2550; J7030; S0164

== ENCOUNTER → 2018-12-30 | Outpatient (CLI) | payer MEDICARE, OTHER | LOC: OD 12:21 | PROVIDERS: ATTEND Internal Medicine Geriatric Medicine | DX: N95.1 Menopausal and female climacteric states (principal) | CPT/HCPCS: 36415; 84403 ==

== ENCOUNTER → 2019-11-17 | Outpatient (CLI) | payer MEDICARE, OTHER ==
--- NOTE | 2019-11-17 12:13 | WOMENS IMAGING REPORT ---
EXAM DESCRIPTION: 3D SCREENING MAMMO BILAT COMPLETED DATE/TIME: 11/17/2019 11:50 am REASON FOR STUDY: Z12.31 ENCOUNTER FOR SCREENING MAMMOGRAM FOR MALIGNANT NEOPLASM OF BREAST Z12.31 ENCNTR SCREEN MAMMOGRAM FOR MALIGNANT NEOPLASM OF REBEKAH COMPARISON: 2017, 2017 EXAM PARAMETERS: Views: Standard craniocaudal and mediolateral oblique views of each breast recorded using digital acquisition and breast tomosynthesis. Read with the assistance of CAD. .[facility] - [employer] Version 9.2 LIMITATIONS: None. FINDINGS: No suspicious masses, suspicious calcifications or architectural distortion. No areas of c oncern. IMPRESSION: NEGATIVE MAMMOGRAM. BIRADS 1. BREAST DENSITY: d. The breasts are extremely dense, which lowers the sensitivity of mammography. BIRAD: ASSESSMENT: 1 NEGATIVE RECOMMENDATION: ROUTINE SCREENING Please continue yearly bilateral screening mammography/tomosynthesis in November 2020 COMMENT: The patient has been notified of the results by letter per MQSA requirements. Additional no tification policies are in place for contacting patient with suspicious or incomplete findings. Quality ID #[id number]: The [employer] recommends an annual screening mammogram for women aged 40 years or over. This facility utilizes a reminder system to ensure that all patients receive reminder letters, and/or direct phone calls for appointments. This includes reminders for routine scr eening mammograms, diagnostic mammograms, or other Breast Imaging Interventions when appropriate. Th is patient will be placed in the appropriate reminder system. TECHNICAL DOCUMENTATION: FINDING NUMBER: (1) ASSESSMENT: (1) JOB ID: [id number] [employer]- All Rights Reserved Reading location - IP/workstation name: [email or web address]
== END ==
LOC: WI 11:23
PROVIDERS: ATTEND Internal Medicine Geriatric Medicine
DX: Z12.31 Encounter for screening mammogram for malignant neoplasm of breast (principal)
CPT/HCPCS: 77063; 77067